=== PATIENT | male | born 1940 | race Caucasian/White ===

== ENCOUNTER → 2023-06-06 11:32 | Outpatient (REF) | payer MEDICARE, SELFPAY | LOC: HWRAD 11:32 | PROVIDERS: ATTENDING PHYSICIAN Internal Medicine; FAMILY PHYSICIAN Physician Assistant | DX: J44.9 Chronic obstructive pulmonary disease, unspecified (principal) | CPT/HCPCS: 71046 ==

== ENCOUNTER → 2023-06-13 17:57 | Outpatient (REF) | payer MEDICARE, SELFPAY | LOC: PAVMRI 17:57 | PROVIDERS: ATTENDING PHYSICIAN Physician Assistant; FAMILY PHYSICIAN Physician Assistant | DX: M48.061 Spinal stenosis, lumbar region without neurogenic claudication (principal); M54.16 Radiculopathy, lumbar region | CPT/HCPCS: 72148 ==

== ENCOUNTER → 2023-10-27 08:33 | Outpatient (REF) | payer MEDICARE, SELFPAY | LOC: MRI 3T 08:33 | PROVIDERS: ATTENDING PHYSICIAN Physician Assistant; FAMILY PHYSICIAN Physician Assistant | DX: M25.561 Pain in right knee (principal) | CPT/HCPCS: 73721 ==

== ENCOUNTER 2024-05-26 05:50 | Emergency (ER) | payer MEDICARE, SELFPAY ==
[2024-05-26 05:52] VITALS: BP 178/94
[2024-05-26 06:16] VITALS: BMI 25.4
--- NOTE | 2024-05-26 07:45 | ED.GENMED ---
History of Present Illness
General
Chief Complaint: Back Pain
Time Seen by Provider: 05/26/24 06:08
History of Present Illness
History of Present Illness:
83-year-old male with history of hypertension, hyperlipidemia, and peripheral arterial disease status post left iliac stent presents the emergency department for evaluation of generalized lower back pain. Has chronic low back pain for which she
sees orthopedics as an outpatient, NSAID's, diagnosis of spinal stenosis. He reportedly underwent a steroid injection 1 week ago at Ortho but he is not certain whether this was an IM steroid injection versus an epidural injection. States that this
has not helped and he has worsening pain. No lower extremity radiculopathy or paresthesias at rest but does have symptoms of neurogenic claudication. No loss of bladder or bowel function. No fevers, chills, or night sweats. Taking oxycodone
without relief
Past History
Past History
ED Past Medical History: Asthma (as child but outgrew), CAD, HTN and Hypercholesterolemia; Negative NIDDM
ED Past Surgical History: Cardiac (bypass, aortic valve replacement 2019) and Other (Stent in the right leg)
Social History
Tobacco: Former smoker
Alcohol: Occasional
Personal:
Living: with family
Review of Systems
Review of Systems
Allergies reviewed?: Yes
All Other Systems: ROS reviewed and negative except as documented in HPI and ROS
Phy Exam
Physical Exam
Physical Exam:
GEN: Well appearing, NAD, WDWN
HEENT: Oral mucosa moist, no scleral icterus
Cardiac: Regular rate
Lung: No respiratory distress, no tachypnea
MSK: No gross deformity or injuries. No reproducible tenderness to the midline lumbar spine or paraspinous musculature
Skin: Good color, no pallor or jaundice, no rashes
Neuro: AO x3, moves all extremities freely. Bilateral lower extremity strength is 5 out of 5 in all more and symmetric, bilateral lower extremity sensation is intact in all more and symmetric, patellar reflexes 2+ bilaterally
Psych: Calm, cooperative
Course
Orders/Labs/Results
Orders:
Orders
05/26/24 08:21
Oxycodone/Acetaminophen [Percocet 5/325] 1 tablet PO NOW STA
05/26/24 09:04
Bladder Scan- Treatment ONCE
05/26/24 09:12
CRP [C-Reactive Protein] Urgent
Complete Blood Count/With Diff Urgent
Comprehensive Metabolic Panel Urgent
ESR [Erythrocyte Sed Rate] Urgent
05/26/24 09:14
Urinalysis Reflex To Culture Urgent
Date Specimen was Collected: 05/26/24
Time Specimen was Collected: 09:12
Urine Microscopic Reflex Cult Urgent
Urine Culture Urgent
JANAY Source: U
Specimen Description:
Date Specimen was Collected: 05/26/24
Time Specimen was Collected: 09:12
Abnormal Lab Results
05/26/24 05/26/24
09:12 09:14
RBC 4.55 L 10^6/uL
(4.70-6.10)
MCV 96.7 H fL
(80.0-94.0)
MCH 31.6 H pg
(27.0-31.0)
MCHC 32.7 L g/dL
(33.0-37.0)
MPV 11.6 H fL
(7.4-10.4)
Absolute Lymphs (auto) 0.9 L 10^3/uL
(1.2-3.4)
Absolute Monos (auto) 0.7 H 10^3/uL
(0.1-0.6)
Neutrophils % 79.4 H %
(42.2-75.2)
Lymphocytes % 10.5 L %
(20.5-51.1)
Total Bilirubin 1.8 H mg/dl
(0.2-1.3)
Alkaline Phosphatase 145 H U/L
(38-126)
C-Reactive Protein 25.60 H mg/L
(0.0-10.00)
Ur Occult Blood Reflex 2+ A
(Negative)
Leukocyte Esterase Rfl 1+ A
(Negative)
Urine RBC 7-10 A /HPF
(0-2)
Urine WBC (Reflex) 40-50 A /HPF
(0-5)
Urine Albumin (Reflex) 3+ A
(Neg - Trace)
05/26/24 09:12
05/26/24 09:12
Vital Signs
Initial and Last Documented VS:
Initial Vital Signs
Temp Pulse Resp BP Pulse Ox
97.9 F 88 24 178/94 93
05/26/24 05:52 05/26/24 05:52 05/26/24 05:52 05/26/24 05:52 05/26/24 05:52
Last Documented Vital Signs
Temp Pulse Resp BP Pulse Ox
97.9 F 72 18 161/90 93
05/26/24 05:52 05/26/24 08:53 05/26/24 08:53 05/26/24 08:53 05/26/24 05:52
MDM/Problems Addressed
MDM/Problems Addressed:
I was able to determine through chart review the patient received a lumbar epidural steroid injection 8 days ago at his orthopedic office. Given this finding labs were obtained to evaluate white count and inflammatory markers however these were
reassuring, CRP below 50 is reassuring against epidural spinal abscess. His pain did improve with Percocet. Discussed pain control measures and recommend outpatient Ortho follow-up
*Critical Care Note
Total Time (30-74mins, 75-104mins- exclusive of procedures): Not Applicable
ED Attending Note
-
Portions of this chart may have been created with voice recognition software.� Occasional wrong word or��sound alike� substitutions may have occurred due to the inherent limitations of voice recognition software.
Discharge Plan
Departure
Patient Disposition: Home (Routine Discharge)
Date of Disposition: 05/26/24
Time of Disposition: 12:00
Patient with high blood pressure during this ER visit?: No
Discharge Problem:
Spinal stenosis
Instructions: Low Back Pain (DC)
Prescriptions:
New
oxycodone-acetaminophen [Percocet] 5-325 mg tablet
1 tab PO Q6HPRN PRN (Reason: pain) Qty: 10 0RF
methocarbamol 500 mg tablet
500 - 1,000 mg PO HS Qty: 10 0RF
No Action
metoprolol succinate [Toprol XL] 50 mg tablet extended release 24 hr
50 mg PO BID Qty: 180 3RF
Rx Instructions:
Please note decreased dose
hydrocodone-acetaminophen 5-325 mg Tablet
1 tab PO Q4HPRN PRN (Reason: SEVERE back pain)
furosemide 40 MG tablet
40 mg PO DAILYPRN PRN (Reason: takes it on the weekends)
Referrals:
UNKNOWN - PT DOES,NOT KNOW [Family Provider] -
Activity Restrictions/Additional Instructions:
Do not combine the pain medicine and muscle relaxant. Follow-up with your medicare contact specialist as soon as possible
Interventions
Interventions:
*Risk Screen - Suicide Last Done: 05/26/24 05:52
*General Assessment Last Done: 05/26/24 06:15
*Neglect/Abuse Screening Last Done: 05/26/24 06:40
*ED- Fall Risk Assessment Last Done: 05/26/24 06:14
*ED COVID-19 Vaccine History Last Done: 05/26/24 06:14
*Nursing Disposition Last Done: 05/26/24 12:16
ED-Musculoskeletal Assessment Last Done: 05/26/24 06:23
Discharge Date and Time
Discharge Date/Time: 05/26/24 12:16
Print Language: ARABIC
[2024-05-26] MEDS: PERCOCET 5/325 1 TABLET PO (08:42)
[2024-05-26 08:53] VITALS: BP 161/90
[2024-05-26 09:44] LABS: % Basophils 0.5 % (0-2); % Eosinophils 1.1 % (0-6); % Immature Granulocytes 0.1 % (0-0.5); % Lymphocytes 10.5 % (20.5-51.1); % Monocytes 8.4 % (1.7-9.3); % Neutrophils 79.4 % (42.2-75.2); Absolute Eosinophils 0.1 10^3/uL (0-0.7); Absolute Lymphocytes 0.9 10^3/uL (1.2-3.4); Absolute Monocytes 0.7 10^3/uL (0.1-0.6); Absolute Neutrophils 6.4 10^3/uL (1.4-6.5); Hemoglobin 14.4 g/dL (13.0-18.0); Mean Corp Hgb Conc. 32.7 g/dL (33.0-37.0); Mean Corpuscular Hgb 31.6 pg (27.0-31.0); Mean Corpuscular Volume 96.7 fL (80.0-94.0); Mean Platelet Volume 11.6 fL (7.4-10.4); Nucleated Red Blood Cells % 0 % (-); Platelet Count 160 10^3/uL (130-400); Red Blood Cell Count 4.55 10^6/uL (4.70-6.10); Red Cell Dist. Width 13.7 % (11.5-14.5); White Blood Cell Count 8.1 10^3/uL (4.8-10.8)
[2024-05-26 09:49] LABS: ALT (SGPT) 25 U/L (0-50); AST (SGOT) 25 U/L (17-59); Albumin 4.2 g/dl (3.5-5.0); Alkaline Phosphatase 145 U/L (38-126); Blood Urea Nitrogen 19 mg/dl (9-20); Calcium 9.9 mg/dl (8.4-10.2); Carbon Dioxide 30 mmol/L (22-30); Chloride 103 mmol/L (98-107); Estimated Creatinine Clearance 55 ml/min; Glucose 86 mg/dl (70-99); Potassium 4.7 mmol/L (3.5-5.1); Sodium 140 mmol/L (135-145); Total Bilirubin 1.8 mg/dl (0.2-1.3); Total Protein 7.4 g/dl (6.3-8.2); eGFR > 60.00
[2024-05-26 09:54] LABS: Urine Albumin 3+ (Neg - Trace); Urine Bilirubin Negative (Negative); Urine Character Clear (Clear); Urine Color Yellow; Urine Glucose Negative (Negative); Urine Ketone Negative (Negative); Urine Leukocyte 1+ (Negative); Urine Nitrite Negative (Negative); Urine Occult Blood 2+ (Negative); Urine Specific Gravity 1.015 (<1.030); Urine Urobilinogen Negative (Neg - 1+); Urine pH 6.5 (5.0-9.0)
[2024-05-26 10:44] LABS: Erythrocyte Sed Rate 10 mm/hour (0-20)
[2024-05-26 11:36] LABS: Urine Mucus Few
[2024-05-26 11:38] LABS: Urine Amorphous Seen; Urine Urothelial Cell 0-2 /LPF (FEW)
[2024-05-26 11:51] LABS: Urine White Cell 40-50 /HPF (0-5)
[2024-05-26 11:52] LABS: Urine Hyaline Cast 0-2 /LPF (0-2)
== END 2024-05-26 12:16 | disposition home or self-care (01) ==
LOC: EMR 05:50
PROVIDERS: Physician Assistant; EMERGENCY PHYSICIAN Emergency Medicine
DX: M48.00 Spinal stenosis, site unspecified (principal); I10 Essential (primary) hypertension; E78.00 Pure hypercholesterolemia, unspecified; I73.9 Peripheral vascular disease, unspecified; Z87.891 Personal history of nicotine dependence
CPT/HCPCS: 99283; 80053; 81003; 81015; 85025; 85652; 86140; 87077; 87086

== ENCOUNTER → 2024-06-18 08:34 | Outpatient (REF) | payer MEDICARE, SELFPAY | LOC: PAVMRI 08:34 | PROVIDERS: ATTENDING PHYSICIAN Physical Medicine & Rehabilitation; FAMILY PHYSICIAN Internal Medicine | DX: M54.16 Radiculopathy, lumbar region (principal) | CPT/HCPCS: 72148 ==

== ENCOUNTER → 2024-07-16 10:35 | Outpatient (REF) | payer MEDICARE, SELFPAY | LOC: HWRAD 10:35 | PROVIDERS: ATTENDING PHYSICIAN Anesthesiology Pain Medicine; FAMILY PHYSICIAN Internal Medicine | DX: M81.0 Age-related osteoporosis without current pathological fracture (principal) | CPT/HCPCS: 77080 ==

== ENCOUNTER → 2024-07-21 11:35 | Outpatient (REF) | payer MEDICARE, SELFPAY | LOC: RADI 11:35 | PROVIDERS: ATTENDING PHYSICIAN Anesthesiology Pain Medicine; FAMILY PHYSICIAN Internal Medicine | DX: M48.56XA Collapsed vertebra, not elsewhere classified, lumbar region, initial encounter for fracture (principal); M54.50 Low back pain, unspecified ==

== ENCOUNTER 2024-11-03 12:30 | Emergency (ER) | payer MEDICARE, SELFPAY ==
[2024-11-03 12:40] VITALS: BP 137/73
[2024-11-03 16:00] VITALS: BP 129/85
[2024-11-03 17:31] LABS: Hematocrit 48.0 % (39.0-52.0); Hemoglobin 15.5 g/dL (13.0-18.0); Mean Corp Hgb Conc. 32.3 g/dL (33.0-37.0); Mean Corpuscular Volume 97.4 fL (80.0-94.0); Nucleated Red Blood Cells % 0 % (-); Red Cell Dist. Width 14.5 % (11.5-14.5)
--- NOTE | 2024-11-03 18:13 | ED.GENMED ---
History of Present Illness
General
Chief Complaint: Fall
Source: patient and spouse
Exam Limitations: none
Time Seen by Provider: 11/03/24 16:05
Nursing documentation reviewed up to this point in time: agreed with
History of Present Illness
History of Present Illness:
Patient is an 83-year-old male presents to the emergency department after mechanical fall earlier today. He states that he was on the deck when he tripped over a cord falling on his left side. This fall was unwitnessed however he denies any loss
of consciousness. Patient reports noticing bleeding from his left eyebrow region as well as a large tear of the skin on his right forearm.
Patient denies any preceding chest pain, shortness of breath, lightheadedness or dizziness. He denies any current headache, neck pain, vomiting, visual changes, back pain, numbness/tingling in extremities, saddle paresthesias, or weakness. He
denies any pain in his lower extremities.
Patient does note that he has had worsening swelling of bilateral lower legs over the past 2 weeks. He did schedule a follow-up with his algebra tutor, Dr. De in the coming weeks. He does have a prescription for Lasix although is not
compliant. He has known COPD.
He is unsure of his last tetanus shot.
Past History
Past History
ED Past Medical History: Asthma (as child but outgrew), CAD, HTN and Hypercholesterolemia; Negative NIDDM
ED Past Surgical History: Cardiac (bypass, aortic valve replacement 2019) and Other (Stent in the right leg)
Social History
Tobacco: Former smoker
Alcohol: Occasional
Personal:
Living: with family
Review of Systems
Review of Systems
Allergies reviewed?: Yes
All Other Systems: ROS reviewed and negative except as documented in HPI and ROS
Phy Exam
Physical Exam
Physical Exam:
GENERAL: No acute distress
HEENT: Approximately 1.5 cm laceration of left brow with surrounding contusion, extraocular muscles intact, no signs of entrapment, dentition intact, no other obvious trauma
NECK: no midline tenderness, normal range of motion, no other obvious trauma
BACK: no midline tenderness, no other obvious trauma
CHEST: no tenderness, no flail segment, no subcutaneous emphysema, no reproducible tenderness of chest wall
LUNGS: clear to auscultation bilaterally
CARDIOVASCULAR: regular rate and rhythm
ABDOMEN: soft, non-tender, no masses, no other obvious trauma
PELVIS: stable, no obvious injury
EXTREMITIES: Large skin tear to right forearm with additional skin tears to right dorsal hand, left elbow. No bony tenderness of bilateral upper or lower extremities with full range of motion. 1+ pitting edema bilateral lower extremities.
Strength 5/5 in upper/lower extremities. Distal pulses intact with normal sensation and capillary
NEUROLOGIC: awake, alert x 3, no focal deficits, steady gait and fluid speech
Course
Orders/Labs/Results
Orders:
Orders
11/03/24 16:33
CT Cervical Spine W/o Iv Contr Urgent
Comment:
Reason For Exam: fall
CT Head W/o Iv Contrast Urgent
Comment:
Reason For Exam: fall
11/03/24 16:44
CR Chest - 2 Views Urgent
Comment:
Reason For Exam: fall
CR Ribs-left 2 Vw No Pa Chest Urgent
Comment:
Reason For Exam: fall
11/03/24 17:03
Complete Blood Count/With Diff Urgent
11/03/24 18:53
Tetanus/Diphth/Acelpertussis [Adacel] 0.5 ml IM .ONCE ONE
Abnormal Lab Results
11/03/24
17:03
WBC 11.6 H 10^3/uL
(4.8-10.8)
MCV 97.4 H fL
(80.0-94.0)
MCH 31.4 H pg
(27.0-31.0)
MCHC 32.3 L g/dL
(33.0-37.0)
Abs Immat Gran (auto) 0.1 H 10^3/uL
(0-0.05)
Absolute Neuts (auto) 9.1 H 10^3/uL
(1.4-6.5)
Absolute Monos (auto) 1.1 H 10^3/uL
(0.1-0.6)
Neutrophils % 78.3 H %
(42.2-75.2)
Lymphocytes % 10.2 L %
(20.5-51.1)
Monocytes % 9.5 H %
(1.7-9.3)
11/03/24 17:03
11/03/24 18:26
Vital Signs
Initial and Last Documented VS:
Initial Vital Signs
Temp Pulse Resp BP Pulse Ox
98.7 F 106 18 137/73 97
11/03/24 12:40 11/03/24 12:40 11/03/24 12:40 11/03/24 12:40 11/03/24 12:40
Last Documented Vital Signs
Temp Pulse Resp BP Pulse Ox
98.7 F 79 20 129/85 97
11/03/24 12:40 11/03/24 16:00 11/03/24 16:00 11/03/24 16:00 11/03/24 18:13
Procedures
Laceration Closure
Left Eye brow:
Status of Wound: clean
Size of Wound in cm: 1.5
Description of Wound Edges: surrounded by abrasion
Preparation: cleaned with saline
Anesthesia: 1% Lidocaine with epi
Revision/Debridement: routine- no revision
Wound exploration: explored to base- no FB
Type of Closure: single layer closure
Skin Closure Material: 5-0 nylon
Number of sutures: 4
MDM/Problems Addressed
Differential Diagnosis Includes:
Not limited to: Contusion, concussion, intracerebral hemorrhage, skin tear, laceration, dependent edema, CHF, etc.
MDM/Problems Addressed:
83-year-old male presenting after mechanical fall at home sustaining laceration to left brow as well as large skin tear to right forearm, along with other scattered skin tears to upper extremities. No report of loss of consciousness. Vital signs and
physical exam as above.
Patient arrives A&O x3 without any focal neurologic exam. No cervical spinal or midline spinal tenderness. He is ambulating without difficulty without any evidence of bony tenderness or deformity to upper or lower extremities. He does have large
skin of right forearm as well as other skin tears to right hand, left elbow as above. There is a laceration to left brow with surrounding contusion and abrasion.
Ultimately � fall seems to be mechanical in nature. Do not suspect syncope. Will check CT imaging head, cervical spine as well as rib series x-ray of left side. Laceration will require primary closure. Will attempt to better approximate skin tear on
right forearm. Will update tetanus.
Update: Imaging without evidence of acute traumatic injuries. Verbal consent obtained by patient. Laceration of left brow anesthetized with local anesthesia and 4, 5-0 nylon simple interrupted sutures with good skin approximation, and hemeostasis
obtained. I did approximate wound edges of skin tear on right forearm as best as possible using steristrips. Non-stick dressing applied by RN. Tdap updated.
Patient tolerated procedures well and ultimately feel stable for discharge home. Discussed wound care instructions and uture removal in 5 to 7 days. Advised close follow up with cardiology/primary care given complaint of gradually worsening swelling
in lower extremities, although not acute today. Advised to take diuretic as prescribed � he has follow up with cardiology soon.
Referral information given for wound care given large skin tear. Advised to monitor closely for signs of infection and discussed strict return precautions.
Chronic conditions affecting care:
Hypertension
Acute Exacerbation and/or Progression of Chronic Illness:
Acutely hypertensive
*Radiology
Radiology exam reviewed: radiology read reviewed
*Pulse Oximetry
SaO2: 97
Oxygen Mode of Delivery: Room air
Patient hypoxic: no
*EKG
Interpreted by ED Provider?: NA
*Correspondence Dictator Interpretation
Rate: Correspondence Dictator- N/A
*Critical Care Note
Total Time (30-74mins, 75-104mins- exclusive of procedures): Not Applicable
ED Attending Note
-
Portions of this chart may have been created with voice recognition software.� Occasional wrong word or��sound alike� substitutions may have occurred due to the inherent limitations of voice recognition software.
Discharge Plan
Departure
Patient Disposition: Home (Routine Discharge)
Date of Disposition: 11/03/24
Time of Disposition: 18:54
Patient with high blood pressure during this ER visit?: Yes
Condition: Good
Discharge Problem:
Fall, Head injury, Laceration of eyebrow, left, Multiple skin tears
Instructions: Wound Care (DC), Head Injury in Adults (DC), Laceration Repair With Stitches (MS), [facility]-Wounds, BLOOD PRESSURE
Prescriptions:
No Action
metoprolol succinate [Toprol XL] 50 mg tablet extended release 24 hr
50 mg PO BID Qty: 180 3RF
Rx Instructions:
Please note decreased dose
hydrocodone-acetaminophen 5-325 mg Tablet
1 tab PO Q4HPRN PRN (Reason: SEVERE back pain)
furosemide 40 MG tablet
40 mg PO DAILYPRN PRN (Reason: takes it on the weekends)
oxycodone-acetaminophen [Percocet] 5-325 mg tablet
1 tab PO Q6HPRN PRN (Reason: pain) Qty: 10 0RF
methocarbamol 500 mg tablet
500 - 1,000 mg PO HS Qty: 10 0RF
Referrals:
Peng Porter MD [Family Provider, Internal Medicine] - Follow up in 5-7 days
Héctor Osorio MD [Active, Cardiology] - Next open appointment
Activity Restrictions/Additional Instructions:
RETURN TO THE EMERGENCY DEPARTMENT WITH ANY SEVERE HEADACHE OR NECK PAIN, CHANGES IN MENTAL STATUS, PERSISTENT DIZZINESS, VOMITING, CHEST PAIN/SHORTNESS OF BREATH, WORSENING SWELLING OF LOWER EXTREMITIES, OR ANY SIGNS OF INFECTION FROM WOUNDS
- As discussed�your imaging showed no acute abnormalities. It is very important that you follow-up with your algebra tutor soon further evaluation/management outpatient. Please ensure that you have lab work obtained by your primary care
algebra tutor in the next coming days.
- It is important you take your furosemide as directed. Continue to elevate your legs
- The laceration on your left brow was closed with 4 sutures. These will need to be removed in 5 to 7 days. Keep skin tear clean and dry. Continue to wrap with nonstick bandage and gauze until it begins to heal. Keep wound clean and dry. Apply
antibiotic ointment to skin tear. Monitor very closely for signs of infection of any wounds including fever, significant redness or swelling around wound, pus draining from wound, etc. I have provided the information for a follow-up with the wound
care center to ensure the skin tears heal.
- Follow-up with your primary care and cardiology for further evaluation/management
Monitor your symptoms closely and return to the emergency department with any acute worsening/new symptoms or any other concerns
Interventions
Interventions:
*Risk Screen - Suicide Last Done: 11/03/24 12:40
*General Assessment Last Done: 11/03/24 15:30
*Neglect/Abuse Screening Last Done: 11/03/24 15:30
*ED COVID-19 Vaccine History Last Done: 11/03/24 15:30
*Nursing Disposition Last Done: 11/03/24 19:34
ED-Musculoskeletal Assessment Last Done: 11/03/24 15:30
ED- Neurological Assessment Last Done: 11/03/24 15:30
ED-Skin Assessment Last Done: 11/03/24 15:30
Discharge Date and Time
Discharge Date/Time: 11/03/24 19:35
Print Language: ITALIAN
[2024-11-03] MEDS: ADACEL 0.5 ML IM (19:06)
== END 2024-11-03 19:35 | disposition home or self-care (01) ==
LOC: EMR 12:30
PROVIDERS: Physician Assistant; EMERGENCY PHYSICIAN Emergency Medicine; FAMILY PHYSICIAN Internal Medicine
DX: S51.811A Laceration without foreign body of right forearm, initial encounter (principal); S01.112A Laceration without foreign body of left eyelid and periocular area, initial encounter; S61.411A Laceration without foreign body of right hand, initial encounter; W01.10XA Fall on same level from slipping, tripping and stumbling with subsequent striking against unspecified object, initial encounter; Y92.009 Unspecified place in unspecified non-institutional (private) residence as the place of occurrence of the external cause; Z23 Encounter for immunization; I25.10 Atherosclerotic heart disease of native coronary artery without angina pectoris; I10 Essential (primary) hypertension; E78.00 Pure hypercholesterolemia, unspecified; J44.89 Other specified chronic obstructive pulmonary disease; Z87.891 Personal history of nicotine dependence; Z95.2 Presence of prosthetic heart valve; Z95.5 Presence of coronary angioplasty implant and graft
CPT/HCPCS: 99284; 12011; 90471; 70450; 71046; 71100; 72125; 85025; 90715

== ENCOUNTER 2024-11-13 06:42 | Day surgery (SDC) | payer MEDICARE, SELFPAY ==
[2024-11-13 11:03] LABS: Blood Urea Nitrogen 33 mg/dl (9-20); Calcium 9.1 mg/dl (8.4-10.2); Carbon Dioxide 25 mmol/L (22-30); Chloride 105 mmol/L (98-107); Glucose 97 mg/dl (70-99); Potassium 4.7 mmol/L (3.5-5.1); Sodium 137 mmol/L (135-145); eGFR > 60.00
--- NOTE | 2024-11-13 11:55 | ITS.CL.CARDI ---
[facility] - Cardioversion
Cardioversion
Procedure Report:
Date of Procedure:
Procedure: Cardioversion
Indication: Symptomatic atrial fibrillation
Performing Physician: aCprice Trejo MD
Technique: The patient was brought to the holding area. Signed informed consent was obtained. A time out was called and performed. The patient was anesthetized by the anesthesia service. Anticoagulation status was reviewed and appropriate. R2 pads
were placed anteriorly and posteriorly. A (200) J synchronized biphasic shock followed by 300 J synchronized biphasic shock that restored normal sinus rhythm without significant bradycardia. There were no complications.
Conclusion: Uncomplicated cardioversion from atrial fibrillation to sinus rhythm.
Recommendation: Routine post cardioversion care. Continue snf anticoagulation.
--- NOTE | 2024-11-13 13:55 | W.PN.UPDATE ---
Update Note
Progress Note Update
Patient underwent CT chest abdomen and pelvis for evaluation of a large thrombus detected on a CARRILLO, case was discussed with vascular surgery Dr. Garner. 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
plaque seen eccentrically. Recommendation to continue with anticoagulation and to follow up with vascular surgery. No indications for covered sent for now.
== END 2024-11-13 13:40 | disposition home or self-care (01) ==
LOC: CATH 06:42
PROVIDERS: Nurse Practitioner Adult Health; ATTENDING PHYSICIAN Nuclear Medicine Nuclear Cardiology; FAMILY PHYSICIAN Physician Assistant; OTHER PHYSICIAN Internal Medicine Cardiovascular Disease
DX: I48.91 Unspecified atrial fibrillation (principal); Z79.01 Long term (current) use of anticoagulants; I70.0 Atherosclerosis of aorta; I49.8 Other specified cardiac arrhythmias; J90 Pleural effusion, not elsewhere classified; M48.56XA Collapsed vertebra, not elsewhere classified, lumbar region, initial encounter for fracture; R18.8 Other ascites; I74.11 Embolism and thrombosis of thoracic aorta; R91.1 Solitary pulmonary nodule
CPT/HCPCS: 93312; 93320; 93325; 71275; 74174; 80048; 92960; 93005; Q9967

== ENCOUNTER → 2024-11-18 09:28 | Outpatient (REF) | payer MEDICARE, SELFPAY | LOC: WOUND 09:28 | PROVIDERS: ATTENDING PHYSICIAN Surgery; FAMILY PHYSICIAN Internal Medicine | DX: S51.801A Unspecified open wound of right forearm, initial encounter (principal); S51.802A Unspecified open wound of left forearm, initial encounter; S01.81XA Laceration without foreign body of other part of head, initial encounter; I25.10 Atherosclerotic heart disease of native coronary artery without angina pectoris; I73.9 Peripheral vascular disease, unspecified; I77.9 Disorder of arteries and arterioles, unspecified; I42.9 Cardiomyopathy, unspecified; Z79.01 Long term (current) use of anticoagulants; W19.XXXA Unspecified fall, initial encounter | CPT/HCPCS: 11042; 99203 ==

== ENCOUNTER → 2024-11-25 09:16 | Outpatient (REF) | payer MEDICARE, SELFPAY | LOC: WOUND 09:16 | PROVIDERS: ATTENDING PHYSICIAN Surgery | DX: S51.801A Unspecified open wound of right forearm, initial encounter (principal); S51.802A Unspecified open wound of left forearm, initial encounter; S01.81XA Laceration without foreign body of other part of head, initial encounter; I25.10 Atherosclerotic heart disease of native coronary artery without angina pectoris; I73.9 Peripheral vascular disease, unspecified; I77.9 Disorder of arteries and arterioles, unspecified; I42.9 Cardiomyopathy, unspecified; X58.XXXA Exposure to other specified factors, initial encounter | CPT/HCPCS: 99212 ==

== ENCOUNTER 2024-12-02 11:08 | Inpatient (IN) | payer MEDICARE, SELFPAY ==
[2024-12-02] VITALS (15 sets, daily range): BP systolic 102–150; BP diastolic 70–109; BMI 24.9
--- NOTE | 2024-12-02 08:20 | ED.GENMED ---
History of Present Illness
<BEBETO Gutierrez Last Filed: 12/02/24 09:44>
General
Chief Complaint: Breathing Problem
Source: patient and significant other
Exam Limitations: none
Time Seen by Provider: 12/02/24 08:09
Nursing documentation reviewed up to this point in time: agreed with
History of Present Illness
History of Present Illness:
see MDM
Past History
<BEBETO Gutierrez Last Filed: 12/02/24 09:44>
Past History
ED Past Medical History: Asthma (as child but outgrew), CAD, HTN and Hypercholesterolemia; Negative NIDDM
ED Past Surgical History: Cardiac (bypass, aortic valve replacement 2019) and Other (Stent in the right leg)
Social History
Tobacco: Former smoker
Alcohol: Occasional
Personal:
Living: with family
Phy Exam
<BEBETO Gutierrez Last Filed: 12/02/24 09:44>
Physical Exam
Physical Exam:
GENERAL: Alert , in no apparent distress
EYE: pupils equal and reactive
NECK: Supple
ENT: o/p clr, mmm.
CARDIAC: Irregularly irregular, tachycardia
Moderate 3+ pitting edema symmetric lower extremities
LUNGS: No respiratory distress, crackles at both bases and mid posterior lung more
ABDOMEN: Soft, without focal tenderness, no r/g, no cvat, normal bowel sounds
NEUROLOGICAL: Alert and oriented, no focal neuro deficits
SKIN: Warm and dry, skin intact.
MUSCULOSKELETAL: Significant edema, well perfused. neg jacob's sign
PSYCH: Normal and appropriate interaction.
Scores
<BEBETO Gutierrez Last Filed: 12/02/24 09:44>
Heart Failure Risk
Heart Failure Risk Score: Yes
History of Stroke or TIA: No
History of intubation for respiratory distress: No
Heart rate on ED arrival >/= 110: No
SaO2 <90% on arrival on room air: No
HR >/=110 during 3min walk test (or too ill to perform test): Yes
ECG has acute ischemic changes: No
Urea >/=12mmol/L (BUN 33.6mg/dL): Yes
Serum CO2>/=35mmol/L: No
Troponin I or T elevated to [place] Level (0.4mg/dL): No
NT-proBNP >/=5,000ng/L (5,000pg/ml): Yes
HF Risk Score: 4
Admission Status: HIGH RISK 26.1% Consider SNF treatment or admission to hospital
Course
<Rae Nevarez PA-C - Last Filed: 12/02/24 09:44>
Orders/Labs/Results
Orders:
Orders
12/02/24 07:29
EKG [Electrocardiogram (*1)] Stat
Reason for Study: Shortness of Breath
EKG- Treatment ONCE
12/02/24 08:21
Cardiac Monitoring- Treatment ONCE
CR Chest - 2 Views Urgent
Comment:
Reason For Exam: sob, afib
12/02/24 08:34
Complete Blood Count/With Diff Urgent
Comprehensive Metabolic Panel Urgent
Magnesium Urgent
NT-proBNP Urgent
12/02/24 09:36
Furosemide [Lasix] 40 mg IV NOW STA
12/02/24 09:45
Diltiazem 125 mg/125 ml Nss [Cardizem] 125 mg in 125 ml IV PER PROTOCOL
Initial dose in mg/hr, then titrate:: 5
Titrate to keep:: Heart rate 80-100 bpm
Titrate by mg/hr:: 5 mg/hr
Frequency of titrations (minutes):: 15
Maximum dose in mg/hr:: 15
Abnormal Lab Results
12/02/24
08:34
MCV 99.8 H fL
(80.0-94.0)
MCH 31.9 H pg
(27.0-31.0)
MCHC 32.0 L g/dL
(33.0-37.0)
RDW 16.0 H %
(11.5-14.5)
MPV 11.9 H fL
(7.4-10.4)
Abs Immat Gran (auto) 0.1 H 10^3/uL
(0-0.05)
Absolute Lymphs (auto) 1.0 L 10^3/uL
(1.2-3.4)
Absolute Monos (auto) 0.9 H 10^3/uL
(0.1-0.6)
Immature Gran % 0.6 H %
(0-0.5)
Neutrophils % 75.9 H %
(42.2-75.2)
Lymphocytes % 11.5 L %
(20.5-51.1)
Monocytes % 10.3 H %
(1.7-9.3)
BUN 36 H mg/dl
(9-20)
Glucose 103 H mg/dl
(70-99)
Total Bilirubin 1.9 H mg/dl
(0.2-1.3)
Alkaline Phosphatase 136 H U/L
(38-126)
12/02/24 08:34
12/02/24 08:34
Vital Signs
Initial and Last Documented VS:
Initial Vital Signs
Pulse Resp BP Pulse Ox
124 20 137/96 97
12/02/24 07:35 12/02/24 07:35 12/02/24 07:35 12/02/24 07:35
Last Documented Vital Signs
Temp Pulse Resp BP Pulse Ox
36.2 C 108 30 137/96 97
12/02/24 08:37 12/02/24 08:00 12/02/24 08:00 12/02/24 07:35 12/02/24 08:53
<Saleem Johnson, DO - Last Filed: 12/02/24 09:20>
Orders/Labs/Results
Orders:
Orders
12/02/24 07:29
EKG [Electrocardiogram (*1)] Stat
Reason for Study: Shortness of Breath
EKG- Treatment ONCE
12/02/24 08:21
Cardiac Monitoring- Treatment ONCE
CR Chest - 2 Views Urgent
Comment:
Reason For Exam: sob, afib
12/02/24 08:34
Complete Blood Count/With Diff Urgent
Comprehensive Metabolic Panel Urgent
Magnesium Urgent
NT-proBNP Urgent
12/02/24 09:36
Furosemide [Lasix] 40 mg IV NOW STA
12/02/24 09:45
Diltiazem 125 mg/125 ml Nss [Cardizem] 125 mg in 125 ml IV PER PROTOCOL
Initial dose in mg/hr, then titrate:: 5
Titrate to keep:: Heart rate 80-100 bpm
Titrate by mg/hr:: 5 mg/hr
Frequency of titrations (minutes):: 15
Maximum dose in mg/hr:: 15
Abnormal Lab Results
12/02/24
08:34
MCV 99.8 H fL
(80.0-94.0)
MCH 31.9 H pg
(27.0-31.0)
MCHC 32.0 L g/dL
(33.0-37.0)
RDW 16.0 H %
(11.5-14.5)
MPV 11.9 H fL
(7.4-10.4)
Abs Immat Gran (auto) 0.1 H 10^3/uL
(0-0.05)
Absolute Lymphs (auto) 1.0 L 10^3/uL
(1.2-3.4)
Absolute Monos (auto) 0.9 H 10^3/uL
(0.1-0.6)
Immature Gran % 0.6 H %
(0-0.5)
Neutrophils % 75.9 H %
(42.2-75.2)
Lymphocytes % 11.5 L %
(20.5-51.1)
Monocytes % 10.3 H %
(1.7-9.3)
BUN 36 H mg/dl
(9-20)
Glucose 103 H mg/dl
(70-99)
Total Bilirubin 1.9 H mg/dl
(0.2-1.3)
Alkaline Phosphatase 136 H U/L
(38-126)
12/02/24 08:34
12/02/24 08:34
Vital Signs
Initial and Last Documented VS:
Initial Vital Signs
Pulse Resp BP Pulse Ox
124 20 137/96 97
12/02/24 07:35 12/02/24 07:35 12/02/24 07:35 12/02/24 07:35
Last Documented Vital Signs
Temp Pulse Resp BP Pulse Ox
36.2 C 108 30 137/96 97
12/02/24 08:37 12/02/24 08:00 12/02/24 08:00 12/02/24 07:35 12/02/24 08:53
<Rae Nevarez PA-C - Last Filed: 12/02/24 09:44>
MDM/Problems Addressed
Differential Diagnosis Includes:
see MDM
MDM/Problems Addressed:
Note:
CHIEF COMPLAINT(S)
Shortness of breath and leg swelling.
HISTORY OF PRESENT ILLNESS
The patient is an 83-year-old male with a known history of atrial fibrillation on eliquis, CABG, CHF on lasix, mural thoracic aortic thrombus here for DYSPNEA and leg swelling.
He is currently taking Apixaban and reports adherence to this medication regimen. Approximately two weeks ago, the patient underwent an outpatient cardioversion which, to his knowledge and per his press leader, initially suggested success but he
now believes he remains in atrial fibrillation. The patients chief complaints include worsening shortness of breath and swelling in the legs, which have persisted for approximately two months. He reports difficulty with exertion, finding it tough to
go up a flight of steps or walk long distances. Recently, upon consulting with his press leader, the dose of furosemide was doubled to manage edema, and then returned to the original dosage after three days. Despite this adjustment, the patient did
not experience an improvement in symptoms. He denies experiencing any chest pain. There is also a notable change in his voice, characterized as hoarse, which he attributes to dryness.
PAST MEDICAL AND SURGICAL HISTORY
The patient has a past medical history significant for atrial fibrillation and an episode involving a blood clot in his aorta, which was incidentally found two weeks ago during a cardioversion. The patient recalls a history of smoking cessation
approximately 15 years ago. There is no mention of prior surgical history.
SOCIAL HISTORY
The patient quit smoking approximately 15 years ago. He reports occasional alcohol consumption, describing it as a couple of nights a week.
PHYSICAL EXAM
see above
- Nursing notes reviewed and vital signs reviewed.
PLAN
- Contact the patients press leader to discuss the current situation.
- Obtain blood work to assess kidney function and other relevant parameters.
- Perform a chest X-ray to evaluate for pulmonary congestion or other pathology.
- Provide the patient with ice chips to address dryness while limiting fluid intake.
- The patient is advised that hospitalization might be necessary to manage fluid overload with intravenous diuretics, monitor kidney function, and possibly attempt another cardioversion if clinically indicated.
DIFFERENTIAL DIAGNOSIS
The Differential Diagnosis includes, in no particular order and is not limited to:
1. Congestive heart failure exacerbation
2. Uncontrolled atrial fibrillation
3. Pulmonary edema
4. Atrial flutter
5. Lung infection or pneumonia
6. Chronic obstructive pulmonary disease
7. Thrombosis or embolism complications
8. Heart valve disorders
9. Renal insufficiency secondary to diuretics
10. Laryngeal pathology affecting voice production
dallin perez
83 y/o M cabg, chf on lasix, afib on eliquis, cardioversion 11/13 kyaw
ongoing OLIVARES, leg edema, not improved after cardioversion
in afib with RVR, stable signs, no resp distress
chf
spoke iwth dr. chacon cards,
agree with plan of cardizem gtt and lasix iv
pt will need admission
may need repeta cardioversion, will defer to cards
<Rae Nevarez PA-C - Last Filed: 12/02/24 09:44>
*Pulse Oximetry
SaO2: 97
Oxygen Mode of Delivery: Room air
Patient hypoxic: no (97)
*Critical Care Note
Total Time (30-74mins, 75-104mins- exclusive of procedures): Not Applicable
ED Attending Note
<Rae Nevarez PA-C - Last Filed: 12/02/24 09:44>
-
Portions of this chart may have been created with voice recognition software.� Occasional wrong word or��sound alike� substitutions may have occurred due to the inherent limitations of voice recognition software.
<Saleem Johnson DO - Last Filed: 12/02/24 09:20>
ED Attending Note
Patient seen and examined by attending physician: Yes
I performed the substantive portion of visit, reviewed & personally made and approve the management plan that is documented in note by myself or MIRTA.: Yes
ED Attending Note:
Seen with PA examined independently 83 male PAF heart failure presents with fatigue shortness of breath rapid A-fib lower extremity edema
Discharge Plan
Departure
Patient Disposition: Admit
Date of Disposition: 12/02/24
Time of Disposition: 09:41
Admit to: Telemetry
Presentation/result/management discussed w/ accepting MD/DO: Hospitalist
Condition: Fair
Covid-19: Not Applicable
Discharge Problem:
CHF (congestive heart failure), Atrial fibrillation with rapid ventricular response
Prescriptions:
No Action
furosemide 40 MG tablet
40 mg PO DAILY
acetaminophen [Tylenol] 325 mg Tablet
325 mg PO Q6HPRN PRN (Reason: MILD pain)
metoprolol succinate 50 mg Tablet Extended Release 24 Hr
50 mg PO DAILY
Eliquis 5 mg Tablet
5 mg PO BID
Trelegy Ellipta 100-62.5-25 mcg Blister With Device
1 inh INHALATION R DAILY
Referrals:
Loren Watt PA-C [Family Provider, Internal Medicine]
Interventions
Interventions:
*Risk Screen - Suicide Last Done: 12/02/24 07:35
*General Assessment Last Done: 12/02/24 07:35
ED- Cardiac Assessment Last Done: 12/02/24 08:53
ED- Pulmonary Assessment Last Done: 12/02/24 08:53
Discharge Date and Time
Print Language: VIET[place]ESE
[2024-12-02 08:50] LABS: Hematocrit 48.5 % (39.0-52.0); Hemoglobin 15.5 g/dL (13.0-18.0); Mean Corp Hgb Conc. 32.0 g/dL (33.0-37.0); Mean Corpuscular Volume 99.8 fL (80.0-94.0); Nucleated Red Blood Cells % 0 % (-); Platelet Count 141 10^3/uL (130-400); Red Cell Dist. Width 16.0 % (11.5-14.5)
[2024-12-02 09:19] LABS: ALT (SGPT) 24 U/L (0-50); AST (SGOT) 31 U/L (17-59); Albumin 3.9 g/dl (3.5-5.0); Alkaline Phosphatase 136 U/L (38-126); Blood Urea Nitrogen 36 mg/dl (9-20); Calcium 9.5 mg/dl (8.4-10.2); Carbon Dioxide 29 mmol/L (22-30); Chloride 107 mmol/L (98-107); Estimated Creatinine Clearance 48 ml/min; Glucose 103 mg/dl (70-99); Magnesium 2.2 mg/dl (1.6-2.3); Potassium 4.7 mmol/L (3.5-5.1); Sodium 141 mmol/L (135-145); Total Protein 6.8 g/dl (6.3-8.2); eGFR > 60.00
[2024-12-02] MEDS: CARDIZEM 125 IV ×2 (09:51→21:55)
[2024-12-02] MEDS: LASIX 40 MG IV (09:51)
--- NOTE | 2024-12-02 10:00 | HPS.HSE ---
Family Physician
<Citlali Ramon MD, Resident - Last Filed: 12/02/24 11:26>
-
Family Physician: Loren Watt
Chief Complaint
<Citlali Ramon MD, Resident - Last Filed: 12/02/24 11:26>
-
Dyspnea on exertion and leg swelling.
History of Present Illness
83-year-old male with PMHx significant for paroxysmal A-fib, recent diagnosis of intramural thoracic aortic thrombus, ischemic cardiomyopathy, CAD s/p CABG, PAD, hypertension, bilateral carotid artery stenosis, chronic pain, vitamin D deficiency,
aortic stenosis s/p valve replacement, COPD, hyperlipidemia, lumbar spinal stenosis presents to the ER for evaluation of shortness of breath on exertion and leg swelling.
On 11/06/2024, patient underwent cardioversion and was restored to normal rhythm, but he thinks he was back into abnormal rhythm after some time following cardioversion. Patient states that about 1 month ago, he used to mow his lawn and also blow
the leaves in his yard using a leaf blower. But currently his mobility status decreased severely because of the swelling of the legs and dyspnea on exertion. He found himself huffing and puffing to take the flight of stairs in his house over the
last 2 weeks, and he states that he was not able to walk long distances. His cardiology doubled his Lasix dose for 3 days which gave him intermediate relief and patient felt worsening dyspnea on exertion after switching back to his baseline Lasix
dose of 40 mg. He reports to be having orthopnea for the last 1 week states that he had to sleep in the recliner to feel comfortable, and overnight he reports having PND. He denies having chest pain syncope or near syncopal episodes. He also
reports to feeling progressively fatigued over the last 1 month.
Patient also states that his skin, throat feels extremely dry and attributes his hoarseness of voice to the dryness.
He states that he was compliant with his Eliquis and metoprolol and never missed a dose.
Upon review of systems he denies having fevers, chills, sick contacts, nausea, emesis, dizziness, change in bowel or bladder habits, hematuria, melena or hematochezia, focal weakness.
Upon arrival to the ER, his blood pressure was 137/96, his respiratory rate was at 30, he is afebrile with a heart rate of 108 and was found to be in A-fib with RVR. He was given single dose of Lasix 40 mg and was started on Cardizem drip.
Medical History
<Citlali Ramon MD, Resident - Last Filed: 12/02/24 11:26>
Past Medical History
Past Medical History: Reports Other (paroxysmal A-fib, recent diagnosis of intramural thoracic aortic thrombus, ischemic cardiomyopathy, CAD s/p CABG, PAD, hypertension, bilateral carotid artery stenosis, chronic pain, vitamin D deficiency, aortic
stenosis s/p valve replacement, COPD, hyperlipidemia, lumbar spinal stenosis)
Past Surgical History: Reports Other (Left TKA, right KEKE, bilateral cataract extractions with IOL placements, left iliac stent, 07/13/2017 right inguinal hernia repair, aortic valve replacement with CABG on 03/12/2018, LT L5 TFESI no SCD on 05/23/23.)
Social History
Tobacco: Former Smoker ([id number] smoking history, quit smoking more than 10 years ago.)
Alcohol: Occasional (2 drinks, every other day)
Drug: None
Personal:
Living: With Family
Employment: Retired
Family History
Family History: Other (Father had UT and heart disease, mother had colorectal cancer, paternal uncle had CAD, maternal aunt had colorectal cancer,)
Allergies / Home Medications
Allergies reflects when Allergies were last updated in [facility].
Home Medications with original date entered in [facility] [facility]
Allergy/Medication List:
Allergies
Allergy/AdvReac Type Severity Reaction Status Date / Time
No Known Drug Allergies Allergy na Verified 12/02/24 07:36
Home Medications
furosemide 40 mg tablet 40 mg PO DAILY Fluid Retention/Swelling 05/26/24
acetaminophen 325 mg tablet (Tylenol) 325 mg PO Q6HPRN PRN MILD pain 11/13/24
apixaban 5 mg tablet (Eliquis) 5 mg PO BID Heart Disease/Condition 11/13/24
fluticasone fur. 100 mcg-umeclid 62.5 mcg-vilant 25 mcg inhalat.powder (Trelegy Ellipta) 1 inh inhalation R DAILY SOB 11/13/24
metoprolol succinate 50 mg tablet,extended release 24 hr 50 mg PO DAILY Heart Disease/Condition 11/13/24
Review of Systems
<Citlali Ramon MD, Resident - Last Filed: 12/02/24 11:26>
-
History Source: Patient
A 12 point ROS was completed and negative except as noted: Yes
Physical Exam
<Citlali Ramon MD, Resident - Last Filed: 12/02/24 11:26>
Vital Signs
Vital Signs
Temp Pulse Resp BP Pulse Ox
97.1 F 108 30 137/96 97
12/02/24 08:37 12/02/24 08:00 12/02/24 08:00 12/02/24 07:35 12/02/24 08:53
Physical Exam
General: No Apparent Distress and Comfortable
HEENT: Moist mucous membranes
Respiratory: Crackles (Fine inspiratory and lower lobes); No Clear, Wheezes, Rales or Rhonchi
Cardiac: S1/S2, Irregular Rhythm, Peripheral Edema (2+ pitting, extending about his knees into mid thighs.) and JVD; No Murmur, Rub, Gallop or HJR
GI: Soft, Non Tender, Non Distended and Normal Bowel Sounds
Musculoskeletal: No Clubbing, No Cyanosis, Edema, Left Lower Extremity and Edema, Right Lower Extremity
Skin: Warm, Dry and Lesions
Neuro: AO x 3 and No Motor Deficits
Psych: Calm
Laboratory Results
<Citlali Ramon MD, Resident - Last Filed: 12/02/24 11:26>
-
12/02/24 08:34
12/02/24 08:34
Laboratory Results
Total Bilirubin 1.9 mg/dl (0.2-1.3) H 12/02/24 08:34
AST 31 U/L (17-59) 12/02/24 08:34
ALT 24 U/L (0-50) 12/02/24 08:34
Alkaline Phosphatase 136 U/L (38-126) H 12/02/24 08:34
Data Reviewed
<Citlali Ramon MD, Resident - Last Filed: 12/02/24 11:26>
-
Diagnostic Radiology: Image Personally Visualized and interpreted, Report Reviewed by me, Discussed with Physician and Discussed with Patient
Medical Tests (Nuc Med, Echo, EKG etc): Image Personally Visualized and interpreted, Report Reviewed by me, Discussed with Physician and Discussed with Patient
Lab Data: Labs Reviewed by me, Discussed with Physician and Discussed with Patient
Impression/Plan
<Citlali Ramon MD, Resident - Last Filed: 12/02/24 11:26>
-
IMPRESSION: 83-year-old male with PMHx significant for paroxysmal A-fib, recent diagnosis of intramural thoracic aortic thrombus, ischemic cardiomyopathy, CAD s/p CABG, PAD, hypertension, bilateral carotid artery stenosis, chronic pain, vitamin D
deficiency, aortic stenosis s/p valve replacement, COPD, hyperlipidemia, lumbar spinal stenosis presents to the ER for evaluation of shortness of breath on exertion and leg swelling. His proBNP is at 12,500, and he is found to be in acute
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
PLAN:
# Acute CHF
Admit to IVU.
Likely exacerbated from A-fib with RVR.
History of HFrEF with EF of 35 to 40% in 07/2021, and 09/2021.
S/p 1 dose of IV Lasix 40 mg.
IV Lasix 40 mg once a day. Obtain echocardiogram.
Monitor serum creatinine with Lasix.
8 pounds of weight gain, history of A-fib with recent cardioversion on 11/13/2024.
Start the patient on fluid restriction, 2 g sodium diet, daily weights.
Continue beta-carolin.
GDMT as tolerated per cardiology.
Cardiology consulted, on board.
# A-fib with RVR-
S/p cardioversion on 11/13/2024, remote history of ablation-in 2022.
Currently on diltiazem drip.
Cardiology consulted, appreciate cardiology inputs.
[id number] score-7, patient is on Eliquis 5 mg twice daily.
Continue Eliquis 5 mg twice daily, patient reports no missed doses.
Continue Toprol-XL.
# Essential hypertension-
Continue Lasix, monitor blood pressure.
# COPD-
Continue Trelegy Ellipta home regiment.
# Conditions GARAGEMAN-
Lumbar spinal stenosis
Hyperlipidemia
PAD s/p femoral stent
Vitamin D deficiency
# DVT prophylaxis-
Patient is on Eliquis
# CODE STATUS-
DNR.
Most recent workup-
Chest x-ray-12/02/2024-small left and right sided pleural effusions
EKG-A-fib with RVR
S/p cardioversion- 11/13/2024
CARRILLO-11/13/2024-
Normal left atrial appendage with moderate dilation of left atrium and no evidence of left atrial thrombus
Moderately dilated right atrium
Bovine pericardial aortic valve
Mild mitral valve regurgitation
Mild tricuspid regurgitation
PASP-35 mmHg with right atrial pressure of 3 mmHg
Grade 3 atheroma in the aortic arch.
CT angiogram chest/abdomen/pelvis-11/13/2024
Mural thrombus along the posterior wall of the mid to distal thoracic aorta measuring 0.9 x 1.9 cm over an 8.2 cm in length segment. Severe aortobiiliac atherosclerosis. Eccentric mural thrombus in the abdominal aorta.
No aortic aneurysm, dissection, or intramural hematoma.
Patent stent in the left common iliac artery.
The bilateral SFAs appear to be chronically occluded. Both lower extremities are likely supplied by collaterals from the profunda femoris arteries.
Small left and trace right pleural effusions.
5 mm pulmonary nodule along the right major fissure, possible representing an intrapulmonary lymph node. An optional follow-up chest CT can be performed in 12 months if the patient is considered to be at high risk.
Mild abdominopelvic ascites.
Severe compression fracture of the L1 vertebral body, new compared to the lumbar spine MRI from 06/18/2024, age indeterminate but may be acute or subacute.
EP study-07/26/2022-
SUMMARY:
- Mapping and ablation to isolate the PVs
- Additional AF ablation set after PVI.
- 3-D Electroanatomical Mapping
- Intracardiac Ultrasound
Post ablation, I discussed today's findings and results with the patient's ex-, Petra.
RECOMMENDATIONS:
- Observe in monitored bed.
- Maintain oral anticoagulation.
- Continue BB
- PPI X 30 days (Protonix 40 mg twice daily for 30 days) to reduce the risk of esophageal injury after left atrial posterior wall ablation
- Office visit with me in 3 months.
- Continue cardiovascular care with Dr Héctor Osorio
<Sivakumar Mcgowan DO - Last Filed: 12/02/24 11:35>
-
IMPRESSION: 83-year-old male with PMHx significant for paroxysmal A-fib, recent diagnosis of intramural thoracic aortic thrombus, ischemic cardiomyopathy, CAD s/p CABG, PAD, hypertension, bilateral carotid artery stenosis, chronic pain, vitamin D
deficiency, aortic stenosis s/p valve replacement, COPD, hyperlipidemia, lumbar spinal stenosis presents to the ER for evaluation of shortness of breath on exertion and leg swelling. His proBNP is at 12,500, and he is found to be in acute
congestive heart failure likely from [id number] with RVR.
PLAN:
# Acute CHF
Admit to IVU.
Likely exacerbated from A-fib with RVR.
History of HFrEF with EF of 35 to 40% in 07/2021, and 09/2021.
S/p 1 dose of IV Lasix 40 mg.
IV Lasix 40 mg once a day. Obtain echocardiogram.
Monitor serum creatinine with Lasix.
8 pounds of weight gain, history of A-fib with recent cardioversion on 11/13/2024.
Start the patient on fluid restriction, 2 g sodium diet, daily weights.
Continue beta-carolin.
GDMT as tolerated per cardiology.
Cardiology consulted, on board.
# A-fib with RVR-
S/p cardioversion on 11/13/2024, remote history of ablation-in 2022.
Currently on diltiazem drip.
Cardiology consulted, appreciate cardiology inputs.
[id number] score-7, patient is on Eliquis 5 mg twice daily.
Continue Eliquis 5 mg twice daily, patient reports no missed doses.
Continue Toprol-XL.
# Essential hypertension-
Continue Lasix, monitor blood pressure.
# COPD-
Continue Trelegy Ellipta home regiment.
# Conditions GARAGEMAN-
Lumbar spinal stenosis
Hyperlipidemia
PAD s/p femoral stent
Vitamin D deficiency
# DVT prophylaxis-
Patient is on Eliquis
# CODE STATUS-
DNR.
Most recent workup-
Chest x-ray-12/02/2024-small left and right sided pleural effusions
EKG-A-fib with RVR
S/p cardioversion- 11/13/2024
CARRILLO-11/13/2024-
Normal left atrial appendage with moderate dilation of left atrium and no evidence of left atrial thrombus
Moderately dilated right atrium
Bovine pericardial aortic valve
Mild mitral valve regurgitation
Mild tricuspid regurgitation
PASP-35 mmHg with right atrial pressure of 3 mmHg
Grade 3 atheroma in the aortic arch.
CT angiogram chest/abdomen/pelvis-11/13/2024
Mural thrombus along the posterior wall of the mid to distal thoracic aorta measuring 0.9 x 1.9 cm over an 8.2 cm in length segment. Severe aortobiiliac atherosclerosis. Eccentric mural thrombus in the abdominal aorta.
No aortic aneurysm, dissection, or intramural hematoma.
Patent stent in the left common iliac artery.
The bilateral SFAs appear to be chronically occluded. Both lower extremities are likely supplied by collaterals from the profunda femoris arteries.
Small left and trace right pleural effusions.
5 mm pulmonary nodule along the right major fissure, possible representing an intrapulmonary lymph node. An optional follow-up chest CT can be performed in 12 months if the patient is considered to be at high risk.
Mild abdominopelvic ascites.
Severe compression fracture of the L1 vertebral body, new compared to the lumbar spine MRI from 06/18/2024, age indeterminate but may be acute or subacute.
EP study-07/26/2022-
SUMMARY:
- Mapping and ablation to isolate the PVs
- Additional AF ablation set after PVI.
- 3-D Electroanatomical Mapping
- Intracardiac Ultrasound
Post ablation, I discussed today's findings and results with the patient's ex-, Petra.
RECOMMENDATIONS:
- Observe in monitored bed.
- Maintain oral anticoagulation.
- Continue BB
- PPI X 30 days (Protonix 40 mg twice daily for 30 days) to reduce the risk of esophageal injury after left atrial posterior wall ablation
- Office visit with me in 3 months.
- Continue cardiovascular care with Dr Héctor Osorio
Attending Note:
Patient seen, examined and discussed in detail with resident, and I agree with the above note.
Gen-AAOx3, NAD
HEENT-NC, AT, anicteric, clear oral mm
Neck-supple, positive JVD to angle of jaw
CV-irregular, tachycardic, no M, +S1/S2
Lungs-clear B/L
Abd-soft, NT, ND
Ext-symmetrical bilateral lower extremity edema to thighs
Musculoskeletal-no cyanosis, clubbing
Skin-warm and dry
Neuro-grossly non-focal
Psych-calm, cooperative
Acute on chronic heart failure with reduced EF -suspect multifactorial etiology including rapid atrial fibrillation, excessive fluid intake.
Admit to telemetry. IV Lasix twice daily. Fluid and sodium restriction. Check echocardiogram. Consult cardiology.
BNP 12,500.
Chest x-ray with small bilateral pleural effusions.
Recommend alcohol abstinence, sodium and fluid restriction on discharge. Discussed in detail with patient and .
He admits to missing doses of Lasix when he is busy working.
Rapid atrial fibrillation -underwent cardioversion November 13. History of radiofrequency ablation.
Currently on IV Cardizem drip for rate control. Continue metoprolol and Eliquis.
Check TSH.
Thoracic aortic mural thrombus -noted on CTA, 11/13/2024. Continue anticoagulation. Follow-up with vascular surgery.
COPD without exacerbation -stable.
Essential hypertension -stable.
PAD
Hyperlipidemia
Lumbar stenosis
DNR
updated at the bedside.
[2024-12-02 14:11] LABS: INR 1.54; PT 18.7 Sec (11.4-14.6)
[2024-12-02 14:12] LABS: APTT 35.9 Sec (23.4-35.0)
--- NOTE | 2024-12-02 14:31 | CON.CAR ---
Addendum entered and electronically signed by Paco Ha MD 12/02/24 16:22:
Patient seen and examined
Agree with SHAKIRA Danielle's note and assessment
Presents in atrial fibrillation
Prior history reviewed
2 to 3 weeks of dyspnea on exertion
Prior history of nonischemic and ischemic cardiomyopathy with history of AVR CABG in 2019
Examination:
H&T normocephalic atraumatic
JVP 7
Cor regular regular soft 1/6 murmur
Lungs diminished left greater than right but otherwise clear
Abdomen soft nontender positive bowel sounds
1+ extremity edema
Nonfocal neurologically
Appears mildly agitated
Primary transmission rebuilder: Dr. Osorio
Impression:
A-fib with RVR
Lower extremity edema
Heart failure reduced EF
PAD status post left common iliac stent (patent on CTA chest/abdomen/pelvis 10/2024)
Hypertension
COPD
History of aortic stenosis status post bioprosthetic AVR
History of CAD status post CABG
Mural thrombus of thoracic aorta
Lumbar stenosis
carotid stenosis B/L
Previous cardiovascular testing:
CARRILLO 11/13/2024: Mild to moderately decreased LV function, LV wall motion diffusely hypokinetic, RV systolic function mildly decreased, no left atrial thrombus, #23 bovine pericardial tissue aortic valve, mild MR, grade 3 atheroma in the arch and
large thrombus (not mobile) hugging the wall of the descending aorta.
Echo 10/05/2021: EF 35 to 40%, mild MR, mild TR
Plan:
83-year-old male with history of paroxysmal afib s/p PVI 07/2022 and most recently CARRILLO/CV 11/13/2024, HFrEF, aortic stenosis, CAD, status post bioprosthetic AVR and CABG x 3 in 2019, severe COPD, peripheral arterial disease s/p L iliac stent, spinal
stenosis presents to ED with worsening lower extremity edema, OLIVARES, fatigue despite recent uptitration in outpatient diuretics and found to be in afib with RVR and acute on chronic HFrEF. Pro BNP 12,500.
Plan:
1. afib
-currently rate controlled on Cardizem gtt @10
-anticoagulated w/ Eliquis. He has not missed any doses in outpatient setting.
- Uptitrate outpatient beta-carolin with goal of getting patient off calcium channel carolin in setting of heart failure reduced EF
-Status post CARRILLO/cardioversion 11/13/2024 which restored sinus rhythm after 300 J shock, however now with recurrent afib
-Patient will likely need an antiarrhythmic to maintain sinus rhythm.
-Rec: He is agreeable to start amiodarone at 400 mg tid and then repeat CV on 12/04. He is also agreeable to stay for 1 to 2 days of diuresis and repeat attempted cardioversion on amiodarone therapy on December 04
-Could consider repeat PVI with pulsed field energy. He is status post radiofrequency PVI 07/2022 with isolation of the 5 pulmonary veins as well as posterior wall of the left atrium
2. acute HFrEF
-cont IV diuresis
-Currently on Toprol 50 mg daily.
- advance GDMT start DORINA/ARB. Was previously on losartan.
-creatinine 36/1.1 12/02/2024
-eventually consider MRA and SGLT2-I
3. PAD-
-of note, CARRILLO on 11/13/2024 showed no left atrial thrombus with a significantly large nonmobile thrombus hugging the wall of the descending aorta. A CT chest/abdomen/pelvis for further clarification was performed and reviewed with vascular surgery
Dr. Garner. Continued anticoagulation as well as follow-up with vascular surgery was advised.
-has known h/o B/L car
4. HTN
-BPs acceptable on current regimen
Original Note:
Consultation
Consultation Request
Date/Time Consultation Requested: 12/02/2024, 1306
Date/Time Consultation Performed: 12/02/2024, 1430
Requesting Provider: Dr Ramon
Performing Provider: SHAKIRA Pickering for Dr Thomas
Reason for Consultation: Afib, HF
Medical History
-
Chief Complaint: Lower extremity edema
History of Present Illness:
83-year-old male with history of paroxysmal atrial fibrillation status post PVI 07/2022, aortic stenosis, coronary artery disease, status post bioprosthetic AVR and CABG x 3 in 2019, heart failure reduced EF in setting of A-fib, severe COPD,
peripheral arterial disease, spinal stenosis presents to ED with worsening lower extremity edema over the past couple weeks.
He was seen in the office by Dr. Osorio in October 2024 and was found to be in rate controlled atrial fibrillation and volume overloaded. Lasix was uptitrated and he underwent CARRILLO/cardioversion on 11/13/2024. A 300 J shock restored sinus rhythm.
Of note, CARRILLO showed no left atrial thrombus with a significantly large nonmobile thrombus hugging the wall of the descending aorta. A CT chest/abdomen/pelvis for further clarification was performed and reviewed with vascular surgery Dr. Garner.
Continued anticoagulation as well as follow-up with vascular surgery was advised.
Following the cardioversion on 11/13/2024 he continued to experience dyspnea on exertion, increased lower extremity edema limiting his ability to walk, fatigue, and orthopnea. Lasix was doubled for 3 days twice with no improvement in symptoms and he
presented today to ED.
ED workup: proBNP 12,500, BUN/creatinine 36/1.1, NA 141, K4.7
Chest x-ray: Small left and tiny right pleural effusions
EKG: A-fib with RVR 114 bpm, nonspecific ST-T wave abnormality, PVCs
In ED patient was started on Cardizem drip and given dose of Lasix 40 IV x 1. Continues Eliquis 5 mg twice daily with no missed doses.
Past medical history:
Paroxysmal atrial fibrillation
- Status post PVI 07/26/2022
- Status post cardioversion 07/2021
Aortic stenosis, CAD status post #23 AVR Wong bovine 03/12/2018 and CABG x3 03/12/2018 (SUÁREZ to LAD, SVG to OM sequential to right PDA)
Severe COPD
PAD status post L iliac stent in 2002 at [facility] [place] for claudication
Former smoker
Spinal stenosis
Past Medical History
Past Medical History: Other (As above in HPI)
Past Surgical History: Other (Left TKA, right KEKE, bilateral cataracts, left iliac stent, right inguinal hernia repair 06/2017, AVR and CABG 03/12/2018)
Social History
Tobacco: Former Smoker
Alcohol: Occasional
Family History
Family History: Other (Father with ID, sister and 2 brothers with diabetes, mother colon cancer, paternal uncle CAD)
Allergies / Home Medications
Allergy/AdvReac Type Severity Reaction Status Date / Time
No Known Drug Allergies Allergy na Verified 12/02/24 07:36
�Medication �Instructions �Recorded �Confirmed �Type
furosemide 40 mg tablet 40 mg PO DAILY Fluid 05/26/24 12/02/24 History
Retention/Swelling
acetaminophen 325 mg tablet 325 mg PO Q6HPRN PRN MILD pain 11/13/24 12/02/24 History
(Tylenol)
apixaban 5 mg tablet (Eliquis) 5 mg PO BID Heart Disease/Condition 11/13/24 12/02/24 History
fluticasone fur. 100 mcg-umeclid 1 inh inhalation R DAILY SOB 11/13/24 12/02/24 History
62.5 mcg-vilant 25 mcg
inhalat.powder (Trelegy Ellipta)
metoprolol succinate 50 mg 50 mg PO DAILY Heart 11/13/24 12/02/24 History
tablet,extended release 24 hr Disease/Condition
Review of Systems
-
History Source: Patient
All other systems: Negative unless noted
Physical Exam
Vital Signs
Temp Pulse Resp BP Pulse Ox
96.1 F L 91 18 121/82 95
12/02/24 12:59 12/02/24 13:07 12/02/24 12:59 12/02/24 13:07 12/02/24 14:16
GEN: No distress, awake, Ox3
HEENT: supple, anicteric, mmm
LUNGS: CTA, no wheezes/rales
CV: Irregular, irregular, no murmur
ABD: soft, BS+, NT/ND
EXT: 1+ lower extremity edema
NEURO: Gross non-focal
SKIN: Bilateral lower extremity venous stasis color changes
Lab Results
12/02/24 08:34
12/02/24 08:34
Eco-Q-Yuzsolvshpf Pept [id number] pg/ml 12/02/24 08:34
Impression / Plan
-
PCP: Cory Chambers
Primary transmission rebuilder: Dr. Osorio
Impression:
A-fib with RVR
Lower extremity edema
Heart failure reduced EF
PAD status post left common iliac stent (patent on CTA chest/abdomen/pelvis 10/2024)
Hypertension
COPD
History of aortic stenosis status post bioprosthetic AVR
History of CAD status post CABG
Mural thrombus of thoracic aorta
Lumbar stenosis
carotid stenosis B/L
Previous cardiovascular testing:
CARRILLO 11/13/2024: Mild to moderately decreased LV function, LV wall motion diffusely hypokinetic, RV systolic function mildly decreased, no left atrial thrombus, #23 bovine pericardial tissue aortic valve, mild MR, grade 3 atheroma in the arch and
large thrombus (not mobile) hugging the wall of the descending aorta.
Echo 10/05/2021: EF 35 to 40%, mild MR, mild TR
Plan:
83-year-old male with history of paroxysmal afib s/p PVI 07/2022 and most recently CARRILLO/CV 11/13/2024, HFrEF, aortic stenosis, CAD, status post bioprosthetic AVR and CABG x 3 in 2019, severe COPD, peripheral arterial disease s/p L iliac stent, spinal
stenosis presents to ED with worsening lower extremity edema, OLIVARES, fatigue despite recent uptitration in outpatient diuretics and found to be in afib with RVR and acute on chronic HFrEF. Pro BNP 12,500.
Plan:
1. afib
-currently rate controlled on Cardizem gtt @10
-anticoagulated w/ Eliquis. He has not missed any doses in outpatient setting.
- Uptitrate outpatient beta-carolin with goal of getting patient off calcium channel carolin in setting of heart failure reduced EF
-Status post CARRILLO/cardioversion 11/13/2024 which restored sinus rhythm after 300 J shock, however now with recurrent afib
-Patient will likely need an antiarrhythmic to maintain sinus rhythm.
-Rec: start Amiodarone at 400 mg tid and then repeat CV on 12/04
-Could consider repeat PVI with pulsed field energy. He is status post radiofrequency PVI 07/2022 with isolation of the 5 pulmonary veins as well as posterior wall of the left atrium
2. acute HFrEF
-cont IV diuresis
-Currently on Toprol 50 mg daily.
- advance GDMT start DORINA/ARB. Was previously on losartan.
-creatinine 36/1.1 12/02/2024
-eventually consider MRA and SGLT2-I
3. PAD-
-of note, CARRILLO on 11/13/2024 showed no left atrial thrombus with a significantly large nonmobile thrombus hugging the wall of the descending aorta. A CT chest/abdomen/pelvis for further clarification was performed and reviewed with vascular surgery
Dr. Garner. Continued anticoagulation as well as follow-up with vascular surgery was advised.
-has known h/o B/L car
4. HTN
-BPs acceptable on current regimen
Data Reviewed
-
EKG: Tracing Personally Visualized and interpreted
Labs: Labs Reviewed by me
--- NOTE | 2024-12-02 14:33 | PTCARENOTE ---
received patient from ER, monitor placed, Afib with a HR of 82, VSS. IV Cardizem @ 10ml/hr via right forearm without difficulties. patient is a FR from a recent fall which on the front chest upper left hand side is an ecchymotic area, FR band on. he
also has bilat. plus 2 edema on LE , reddened blisters R > L. Doppler pulses bilaterally. CHF folder given, reviewed booklet patient is semi interested. patient is a DNR, band on. oriented to room and surroundings. call kwong within reach. Echo will
be done at bedside.
--- NOTE | 2024-12-02 16:44 | CM ---
spoke to pt in room, he is prev indep, lives with his in a 2 story home with no step sto enter. he denies any dc planning needs. he has a cane and a walker he uses when needed. plan is for dc to home when medically stable.
[2024-12-02] MEDS: ELIQUIS 5 MG PO (19:35)
[2024-12-02] MEDS: SYMBICORT 80/4.5 MCG INHALER 2 PUFF INH (20:07)
[2024-12-02] MEDS: MELATONIN 3 MG PO (21:55)
[2024-12-02] MEDS: PACERONE 400 MG PO (21:55)
--- NOTE | 2024-12-02 22:25 | PTCARENOTE ---
Received patient at change of shift. Afib on the monitor, HR in the 70s. Cardizem running as per protocol, see documentation. Doppler pedal pulses. No complaints from pt at this time, call kwong within reach.
[2024-12-02] MEDS: TYLENOL 325 MG PO (23:02)
[2024-12-03] VITALS (7 sets, daily range): BP systolic 93–130; BP diastolic 70–83; BMI 25.7
[2024-12-03] MEDS: BENADRYL 12.5 MG IV (01:54)
[2024-12-03 02:10] LABS: Hematocrit 44.6 % (39.0-52.0); Hemoglobin 14.6 g/dL (13.0-18.0); Mean Corp Hgb Conc. 32.7 g/dL (33.0-37.0); Mean Corpuscular Volume 97.6 fL (80.0-94.0); Nucleated Red Blood Cells % 0.3 % (-); Platelet Count 138 10^3/uL (130-400); Red Cell Dist. Width 15.9 % (11.5-14.5)
--- NOTE | 2024-12-03 02:19 | PTCARENOTE ---
Patient rang call kwong and complained of being awake and that the melatonin didn't work for him. PRN Tylenol administered as per pt request.
Patient was still anxious and awake following the Tylenol. [facility] Jen Alvarado made aware. IV Benadryl ordered and administered.
[2024-12-03 03:16] LABS: ALT (SGPT) 23 U/L (0-50); AST (SGOT) 28 U/L (17-59); Albumin 3.7 g/dl (3.5-5.0); Alkaline Phosphatase 126 U/L (38-126); Blood Urea Nitrogen 39 mg/dl (9-20); Calcium 9.6 mg/dl (8.4-10.2); Carbon Dioxide 23 mmol/L (22-30); Chloride 106 mmol/L (98-107); Estimated Creatinine Clearance 41 ml/min; Glucose 112 mg/dl (70-99); Magnesium 2.1 mg/dl (1.6-2.3); Potassium 4.5 mmol/L (3.5-5.1); Sodium 137 mmol/L (135-145); Total Protein 6.4 g/dl (6.3-8.2); eGFR 54.85
[2024-12-03] MEDS: SPIRIVA RESPIMAT 2.5 MCG 2 PUFF INH (07:24)
[2024-12-03] MEDS: SYMBICORT 80/4.5 MCG INHALER 2 PUFF INH ×2 (07:24→20:40)
[2024-12-03] MEDS: TOPROL XL 50 MG PO (08:14)
[2024-12-03] MEDS: PACERONE 400 MG PO (08:14)
[2024-12-03] MEDS: ELIQUIS 5 MG PO ×2 (08:14→20:29)
[2024-12-03] MEDS: LASIX 40 MG IV (08:14)
--- NOTE | 2024-12-03 08:59 | W.PN.HOSP.TC ---
Today's Communication/Plan
-
Continue diuresis
Assessment / Plan
Assessment / Plan
Gen-AAOx3, NAD
HEENT-NC, AT, anicteric, clear oral mm
Neck-supple
CV-reg, no M, +S1/S2
Lungs-clear B/L
Abd-soft, NT, ND
Ext-bilateral lower extremity edema
Musculoskeletal-no cyanosis, clubbing
Skin-warm and dry
Neuro-grossly non-focal
Psych-calm, cooperative
Acute on chronic heart failure with reduced EF -suspect multifactorial etiology including rapid atrial fibrillation, excessive fluid intake.
Volume status improving, less lower extremity swelling. Continue IV Lasix. Monitor renal function and electrolytes closely. Creatinine noted to be 1.3 today.
Echocardiogram shows worsening LVEF, 15 to 20%. Mild to moderate MR with dilated LA. Dilated and hypokinetic RV RV, dilated RA, moderate to severe TR.
BNP 12,500.
Chest x-ray with small bilateral pleural effusions.
Recommend alcohol abstinence, sodium and fluid restriction on discharge. Discussed in detail with patient and .
He admits to missing doses of Lasix when he is busy working.
Rapid atrial fibrillation -underwent cardioversion November 13. History of radiofrequency ablation.
Currently on IV Cardizem drip for rate control. Continue metoprolol and Eliquis.
Amiodarone started by cardiology with plans for cardioversion this admission.
Subclinical hypothyroidism -TSH 10.1, free T4 1.5. Recommend repeating labs as outpatient, PCP follow-up.
Thoracic aortic mural thrombus -noted on CTA, 11/13/2024. Continue anticoagulation. Follow-up with vascular surgery.
COPD without exacerbation -stable.
Essential hypertension -stable.
PAD
Hyperlipidemia
Lumbar stenosis
Chronic insomnia -received 3 mg of melatonin last night without sleep, will increase to 5 mg. Will avoid trazodone or other agents that can worsen his already prolonged QT interval.
DNR
updated at the bedside.
Anticipated Discharge: > 48 hours
Subjective/Interval History
-
Date of Service: December 03, 2024
Patient seen and examined. Complaining of insomnia. Denies shortness of breath.
Objective Data
-
Labs:
Laboratory Results
12/03/24
01:57
WBC 7.0
Hgb 14.6
Hct 44.6
Plt Count 138
Sodium 137
Potassium 4.5
Chloride 106
Carbon Dioxide 23
BUN 39 H
Creatinine 1.3
Glucose 112 H
Calcium 9.6
Total Bilirubin 2.1 H
AST 28
ALT 23
Alkaline Phosphatase 126
Vital Signs:
Vital Signs
Temp Pulse Resp BP Pulse Ox
97.4 F 78 16 130/76 97
12/03/24 07:25 12/03/24 08:14 12/03/24 07:25 12/03/24 08:14 12/03/24 07:25
I&O
12/02/24 12/03/24 12/04/24
06:59 06:59 06:59
Intake Total 360 / 360
Output Total 500 / 500
Balance -140 / -140
Review of Systems
-
History Source: Patient
All other systems: Reviewed and negative
--- NOTE | 2024-12-03 12:55 | PTCARENOTE ---
Pt is AOx3, no complaints of pain or discomfort. OOB x1 with walker. Afib on tele monitor, VSS. Call kwong within reach.
--- NOTE | 2024-12-03 15:42 | W.PN.CARDCBS ---
Addendum entered and electronically signed by Marshall Walsh MD 12/03/24 16:41:
I saw and examined the patient.
The Road Machinery Inspector's note was reviewed and I agree with the note.
Comment: Briefly, 83-year-old man past medical history of heart failure with reduced ejection fraction (EF 15-20%) and paroxysmal atrial fibrillation who presents in rapid atrial fibrillation and acute heart failure
With diuresis patient reports that his lower extremity edema significantly improved
Would continue IV Lasix today with tentative transition back to oral in next 24 to 48 hours
Continue metoprolol
Consider adding low-dose DORINA/ARB/ARNI but I am unsure that his blood pressure will tolerate
Heart rate in atrial fibrillation is better controlled today, but was still on low-dose diltiazem drip this morning at the time of my evaluation, ideally would be weaned off calcium channel carolin with reduced EF
Amiodarone 400 mg TID added yesterday for adjunct rate control
QTc is prolonged by ECG today. Will cut back amiodarone back to 200 mg twice daily for 1 month and then decrease to 200mg daily.
Tentative plan for direct-current cardioversion in a.m. if patient remains in A-fib. No left atrial appendage thrombus on recent CARRILLO and patient reports he has been reliably anticoagulated therefore I think that this can safely be performed without
repeat CARRILLO.
Original Note:
Today's Communication / Plan
-
Decrease amiodarone dose and recheck ECG in a.m.
CV in a.m.
Impression / Plan
-
PCP: Cory Chambers
Primary grey percher: Dr. Osorio
Impression:
Admitted with rapid A-fib and acute HF 12/02/2024
A-fib with RVR
Paroxysmal A-fib
s/p PVI 07/2022
s/p CV successful 11/13/2024
Acute HFrEF
CM EF 15 to 20% by echo 12/02/2024
PAD status post left common iliac stent (patent on CTA chest/abdomen/pelvis 10/2024)
Hypertension
COPD
History of aortic stenosis status post bioprosthetic AVR
History of CAD status post CABG
Mural thrombus of thoracic aorta
Lumbar stenosis
carotid stenosis B/L
Echo 10/05/2021: EF 35 to 40%, mild MR, mild TR
CARRILLO 11/13/2024: Mild to moderately decreased LV function, LV wall motion diffusely hypokinetic, RV systolic function mildly decreased, no left atrial thrombus, #23 bovine pericardial tissue aortic valve, mild MR, grade 3 atheroma in the arch and
large thrombus (not mobile) hugging the wall of the descending aorta.
Echo 12/02/2024: EF 15 to 20%, mild to moderate MR, tissue AVR with peak/mean 13/7 mmHg and no aortic regurgitation, dilated and hypokinetic RV, moderate to severe TR with PAP 47 mmHg
Plan:
-Patient presented to the ER with increased LE edema and was found to be in rapid A-fib and was admitted with acute HF prompting cardiology consultation.
-Patient remains in A-fib with RVR. Patient had successful outpatient CV on 11/13/2024 followed by this recurrence. Patient is new to amiodarone 400 mg TID starting 12/02/2024, dose reduced to 200 mg BID starting 12/03/2024 PM, orders placed by me.
-QTc 564 ms on ECG 12/03/2024. QTc 507 ms on ECG 12/02/2024. Repeat ECG in a.m., ordered by me.
-Outpatient dose of Eliquis 5 mg BID has been continued
-Plan is for CV on 12/04/2024. Pending results patient can be considered for repeat PVI, patient had previous PVI 07/2022
-CARRILLO on 11/13/2024 showed no left atrial thrombus with a significantly large nonmobile thrombus hugging the wall of the descending aorta. A CT chest/abdomen/pelvis for further clarification was performed and reviewed with vascular surgery Dr. Garner.
Continued anticoagulation as well as follow-up with vascular surgery was advised.
-Weight is up 6 lbs, the patient was weighed on bed scale one day and standing scale the other day. Previous dry weight unknown
-Continue Lasix 40 mg IV daily. Patient was taking Lasix 40 mg PO daily prior to admission
-Outpatient dose of Toprol-XL 50 mg daily has been continued
-Consider restarting losartan which patient previously tolerated
Progress Note - Senior Software Qa Analyst
Subjective
Date of Service: December 03, 2024
He feels well
Objective
Labs:
12/03/24 01:57
12/03/24 01:57
Labs
Hgb 14.6 g/dL (13.0-18.0) 12/03/24 01:57
Hct 44.6 % (39.0-52.0) 12/03/24 01:57
Plt Count 138 10^3/uL (130-400) 12/03/24 01:57
PT 18.7 Sec (11.4-14.6) H 12/02/24 13:47
INR 1.54 12/02/24 13:47
APTT 35.9 Sec (23.4-35.0) H 12/02/24 13:47
Sodium 137 mmol/L (135-145) 12/03/24 01:57
Potassium 4.5 mmol/L (3.5-5.1) 12/03/24 01:57
BUN 39 mg/dl (9-20) H 12/03/24 01:57
Creatinine 1.3 mg/dL (0.7-1.3) 12/03/24 01:57
Glucose 112 mg/dl (70-99) H 12/03/24 01:57
Vital Signs and I&O:
Vital Signs
Temp Pulse Resp BP Pulse Ox
97.5 F 79 20 112/70 95
12/03/24 15:17 12/03/24 12:00 12/03/24 15:17 12/03/24 11:23 12/03/24 15:17
Vital Signs
Temp Pulse Resp BP Pulse Ox
97.5 F 79 20 112/70 95
12/03/24 15:17 12/03/24 12:00 12/03/24 15:17 12/03/24 11:23 12/03/24 15:17
Intake & Output
12/01/24 12/02/24 12/03/24 12/04/24
06:59 06:59 06:59 06:59
Intake Total 360 / 360
Output Total 500 / 500 900 / 900
Balance -140 / -140 -900 / -900
Physical Exam
Physical Exam
GEN: NAD
LUNGS: RA
CV: A-fib on telemetry
[2024-12-03] MEDS: PACERONE 200 MG PO (20:29)
[2024-12-03] MEDS: MELATONIN 5 MG PO (22:05)
--- NOTE | 2024-12-03 22:44 | PTCARENOTE ---
Received patient at change of shift. Afib on the monitor, HR in the 70s. Cardizem running as per order, see documentation. NPO at midnight, pt verbalizes understanding. No complaints from pt at this time, call kwong within reach.
[2024-12-04] VITALS (10 sets, daily range): BP systolic 104–170; BP diastolic 65–139; BMI 25.3
[2024-12-04 04:51] LABS: Hematocrit 45.8 % (39.0-52.0); Hemoglobin 14.9 g/dL (13.0-18.0); Mean Corp Hgb Conc. 32.5 g/dL (33.0-37.0); Mean Corpuscular Volume 96.6 fL (80.0-94.0); Nucleated Red Blood Cells % 0 % (-); Platelet Count 146 10^3/uL (130-400); Red Cell Dist. Width 15.6 % (11.5-14.5)
[2024-12-04 05:07] LABS: ALT (SGPT) 23 U/L (0-50); AST (SGOT) 29 U/L (17-59); Albumin 3.8 g/dl (3.5-5.0); Alkaline Phosphatase 123 U/L (38-126); Blood Urea Nitrogen 43 mg/dl (9-20); Calcium 9.6 mg/dl (8.4-10.2); Carbon Dioxide 24 mmol/L (22-30); Chloride 104 mmol/L (98-107); Estimated Creatinine Clearance 35 ml/min; Glucose 103 mg/dl (70-99); Potassium 4.6 mmol/L (3.5-5.1); Sodium 135 mmol/L (135-145); Total Protein 6.7 g/dl (6.3-8.2); eGFR 46.19
[2024-12-04] MEDS: SYMBICORT 80/4.5 MCG INHALER 2 PUFF INH ×2 (07:55→19:38)
[2024-12-04] MEDS: SPIRIVA RESPIMAT 2.5 MCG 2 PUFF INH (07:55)
--- NOTE | 2024-12-04 08:00 | W.PN.CARDCBS ---
Addendum entered and electronically signed by Woodrow Fernandez MD 12/04/24 12:32:
I saw and examined the patient.
The Manager Language's note was reviewed and I agree with the note.
Comment:
GEN: No distress, awake, Ox3
HEENT: supple, anicteric, mmm
LUNGS: CTA, no wheezes/rales
CV: Reg, S1/S2, /6 syst LSB, no gallop
ABD: soft, BS+, NT/ND
EXT: No edema
NEURO: Gross non-focal
SKIN: No rash
PLan:
Back in sinus rhythm status post cardioversion. QTc is prolonged at ~550msec. Will decrease Amio to 200mg daily. Cont Toprol 50mg daily. Will need repeat ECG in AM
Continue Eliquis.
Creatinine up to 1.5 status post diuresis. Hold Lasix and follow
Would hold off on DORINA/ARB/ARNI with elevated creatinine.
Will consider SGL 2 inhibitor
Original Note:
Today's Communication / Plan
-
CV today
Continue with amiodarone
Pending results of repeat BMP he could be discharged to home later today
Impression / Plan
-
PCP: Cory Chambers
Primary house manager: Dr. Osorio
Impression:
Admitted with rapid A-fib and acute HF 12/02/2024
A-fib with RVR
Paroxysmal A-fib
s/p PVI 07/2022
s/p CV successful 11/13/2024
Possible acute HFrEF, but no improvement with diuresis and then developed CARLIN
CM EF 15 to 20% by echo 12/02/2024
PAD status post left common iliac stent (patent on CTA chest/abdomen/pelvis 10/2024)
Hypertension
COPD
History of aortic stenosis status post bioprosthetic AVR
History of CAD status post CABG
Mural thrombus of thoracic aorta
Lumbar stenosis
carotid stenosis B/L
Echo 10/05/2021: EF 35 to 40%, mild MR, mild TR
CARRILLO 11/13/2024: Mild to moderately decreased LV function, LV wall motion diffusely hypokinetic, RV systolic function mildly decreased, no left atrial thrombus, #23 bovine pericardial tissue aortic valve, mild MR, grade 3 atheroma in the arch and
large thrombus (not mobile) hugging the wall of the descending aorta.
Echo 12/02/2024: EF 15 to 20%, mild to moderate MR, tissue AVR with peak/mean 13/7 mmHg and no aortic regurgitation, dilated and hypokinetic RV, moderate to severe TR with PAP 47 mmHg
Plan:
-Patient presented to the ER with increased LE edema and was found to be in rapid A-fib and was admitted with acute HF prompting cardiology consultation.
-Patient remains in A-fib with RVR and plan is for repeat CV 12/04/2024. Patient had successful outpatient CV on 11/13/2024 followed by this recurrence. Pending results of repeat CV patient can be considered for repeat PVI, patient had previous PVI
07/2022
-Patient initially loaded with amiodarone 400 mg TID starting 12/02/2024, but dose reduced to 200 mg BID starting 12/03/2024 PM due to prolonged QT.
-QTc 564 ms on ECG 12/03/2024. QTc 507 ms on ECG 12/02/2024. Repeat ECG in a.m., ordered by me.
-Outpatient dose of Eliquis 5 mg BID has been continued
-CARRILLO on 11/13/2024 showed no left atrial thrombus, but a significantly large nonmobile thrombus hugging the wall of the descending aorta. A CT chest/abdomen/pelvis for further clarification was performed and reviewed with vascular surgery Dr. Garner.
Continued anticoagulation as well as follow-up with vascular surgery was advised.
-Patient was treated for possible acute HFrEF and was given Lasix 40 mg IV daily 12/02/2024 and 12/03/2024. Patient now with CARLIN and Cre up to 1.5 on 12/04/2024. Patient is anxious for discharge to home and cites a lifelong difficulty with
inability to defecate outside of his home environment which leads to him not eating and drinking normally. NSS 250 mL bolus over 2 hours ordered by me for 12/04/2024 and recheck BMP 12/04/2024 afternoon, if Cre is better then recommend discharge to
home.
-Doubt patient had acute HFrEF given CARLIN with attempts at diuresis and lack of symptomatic improvement.
-Patient was taking Lasix 40 mg PO daily prior to admission and this will likely be restarted at time of discharge
-Outpatient dose of Toprol-XL 50 mg daily has been continued
-EF 15 to 20% by echo 12/02/2024
-Patient will not be started on DORINA/ARB/ARNI/aldosterone antagonist due to CARLIN
-Patient is not interested in adding SGLT2 inhibitor, there is a possibility his EF will improve with uatsdin of SR
-Potential discharge to home 12/04/2024 pending repeat labs in the afternoon. Patient is anxious to get home because he has trouble defecating outside of his home environment and is anxious to get back home to his usual BM routine.
Progress Note - Policy Issue Clerk
Subjective
Date of Service: December 04, 2024
He is disappointed to hear that he might not go home today, he says he has trouble moving his bowels outside of his house and being out of routine and he really wants to go home
Objective
Labs:
12/04/24 04:33
12/04/24 04:33
Labs
Hgb 14.9 g/dL (13.0-18.0) 12/04/24 04:33
Hct 45.8 % (39.0-52.0) 12/04/24 04:33
Plt Count 146 10^3/uL (130-400) 12/04/24 04:33
PT 18.7 Sec (11.4-14.6) H 12/02/24 13:47
INR 1.54 12/02/24 13:47
APTT 35.9 Sec (23.4-35.0) H 12/02/24 13:47
Sodium 135 mmol/L (135-145) 12/04/24 04:33
Potassium 4.6 mmol/L (3.5-5.1) 12/04/24 04:33
BUN 43 mg/dl (9-20) H 12/04/24 04:33
Creatinine 1.5 mg/dL (0.7-1.3) H 12/04/24 04:33
Glucose 103 mg/dl (70-99) H 12/04/24 04:33
Vital Signs and I&O:
Vital Signs
Temp Pulse Resp BP Pulse Ox
98.5 F 70 18 114/86 95
12/04/24 04:30 12/04/24 05:00 12/04/24 04:30 12/04/24 04:22 12/04/24 04:30
Vital Signs
Temp Pulse Resp BP Pulse Ox
98.5 F 70 18 114/86 95
12/04/24 04:30 12/04/24 05:00 12/04/24 04:30 12/04/24 04:22 12/04/24 04:30
Intake & Output
12/02/24 12/03/24 12/04/24 12/05/24
06:59 06:59 06:59 06:59
Intake Total 360 / 360
Output Total 500 / 500 1100 / 1100
Balance -140 / -140 -1100 / -1100
Physical Exam
Physical Exam
GEN: NAD
LUNGS: RA
CV: A-fib on telemetry
[2024-12-04] MEDS: ELIQUIS 5 MG PO ×2 (08:07→20:10)
[2024-12-04] MEDS: TOPROL XL 50 MG PO (08:07)
[2024-12-04] MEDS: PACERONE 200 MG PO (08:08)
--- NOTE | 2024-12-04 08:14 | W.PN.HOSP.TC ---
Today's Communication/Plan
-
N.p.o.
Cardioversion
Hold Lasix
Labs in the morning
Assessment / Plan
Assessment / Plan
Gen-AAOx3, NAD
HEENT-NC, AT, anicteric, clear oral mm
Neck-supple
CV-reg, no M, +S1/S2
Lungs-clear B/L
Abd-soft, NT, ND
Ext-bilateral lower extremity edema
Musculoskeletal-no cyanosis, clubbing
Skin-warm and dry
Neuro-grossly non-focal
Psych-calm, cooperative
CARLIN -likely due to overdiuresis. Hold further Lasix. Discussed with cardiology. Creatinine up to 1.5, BUN 43, Bicarb 24.
However, still looks relatively volume overloaded with lower extremity edema, likely due to large contribution of right heart failure.
Acute on chronic heart failure with reduced EF -suspect multifactorial etiology including rapid atrial fibrillation, excessive fluid intake. Hold further Lasix as above.
Echocardiogram shows worsening LVEF, 15 to 20%. Mild to moderate MR with dilated LA. Dilated and hypokinetic RV RV, dilated RA, moderate to severe TR.
BNP 12,500.
Chest x-ray with small bilateral pleural effusions.
Recommend alcohol abstinence, sodium and fluid restriction on discharge. Discussed in detail with patient and .
He admits to missing doses of Lasix when he is busy working.
Rapid atrial fibrillation -underwent cardioversion November 13. History of radiofrequency ablation.
Currently on IV Cardizem drip 5 mg/h for rate control. Continue metoprolol and Eliquis.
Amiodarone started by cardiology.
Plan for cardioversion today. NPO.
Subclinical hypothyroidism -TSH 10.1, free T4 1.5. Recommend repeating labs as outpatient, PCP follow-up.
Thoracic aortic mural thrombus -noted on CTA, 11/13/2024. Continue anticoagulation. Follow-up with vascular surgery.
COPD without exacerbation -stable.
Essential hypertension -stable.
PAD
Hyperlipidemia
Lumbar stenosis
Chronic insomnia -continue 5 mg melatonin. Patient slept last night.
DNR
Anticipated Discharge: Within 24 hours
Subjective/Interval History
-
Date of Service: December 04, 2024
Patient seen and examined, denies shortness of breath. No complaints.
Objective Data
-
Labs:
Laboratory Results
12/04/24
04:33
WBC 8.7
Hgb 14.9
Hct 45.8
Plt Count 146
Sodium 135
Potassium 4.6
Chloride 104
Carbon Dioxide 24
BUN 43 H
Creatinine 1.5 H
Glucose 103 H
Calcium 9.6
Total Bilirubin 2.4 H
AST 29
ALT 23
Alkaline Phosphatase 123
Vital Signs:
Vital Signs
Temp Pulse Resp BP Pulse Ox
98.5 F 81 16 127/88 94
12/04/24 04:30 12/04/24 08:08 12/04/24 08:01 12/04/24 08:08 12/04/24 08:01
I&O
12/03/24 12/04/24 12/05/24
06:59 06:59 06:59
Intake Total 360 / 360
Output Total 500 / 500 1100 / 1100 150 / 150
Balance -140 / -140 -1100 / -1100 -150 / -150
Review of Systems
-
History Source: Patient
All other systems: Reviewed and negative
[2024-12-04] MEDS: NSS 250 IV (09:25)
--- NOTE | 2024-12-04 12:32 | ITS.CL.CARDI ---
[facility] - Cardioversion
Cardioversion
Procedure Report:
Date of Procedure: 12/04/24
Procedure: Cardioversion
Indication: Symptomatic atrial fibrillation
Performing Physician: Woodrow Fernandez MD
Technique: The patient was brought to the holding area. Signed informed consent was obtained. A time out was called and performed. The patient was anesthetized by the anesthesia service. Anticoagulation status was reviewed and appropriate. R2 pads
were placed anteriorly and posteriorly. A 200J synchronized biphasic shock restored normal sinus rhythm without significant bradycardia. There were no complications.
Conclusion: Uncomplicated cardioversion from atrial fibrillation to sinus rhythm.
Recommendation: Routine post cardioversion care. Continue senior care anticoagulation.
--- NOTE | 2024-12-04 18:50 | PTCARENOTE ---
~8601-5064: Handoff report received from nightshift RN. Pt Aox4, Afib 60s-70s on tele, SBP 120s, RA satting 94%. Patient denies pain at this time. Cardizem gt infusing @5, but placed on hold to maintain HR goal of 80-100. Pt NPO for CV today. Ax1
with walker to bathroom. Teeth brushed. 250cc bolus of NSS hung per order. All needs met at this time, call kwong within reach.
~1200: CCL brought patient in bed for CV.
~7786-2163: Patient arrived back to unit post CV in NSR/SB 50s-60s. EKG obtained at bedside showed prolonged QTC, cardiology aware. AOx4, RA satting 96%, SBP 100s. at bedside. All needs met at this time, call kwong within reach.
~9157-2497: Patient resting in room. Pt c/o decreased appetite, food encouraged. VSS. Urinal and call kwong within reach, all needs met at this time. Handoff report given to nightshift RN.
[2024-12-04] MEDS: MELATONIN 3 MG PO (20:10)
[2024-12-04] MEDS: ANESTHETIC LOZENGE 1 LOZENGE PO (20:11)
[2024-12-04] MEDS: MELATONIN 5 MG PO (21:15)
[2024-12-05 03:18] VITALS: BP 134/84
--- NOTE | 2024-12-05 03:24 | PTCARENOTE ---
Received pt @ change of shift. AAOx3, VSS-- NSR w/ long QT on monitor. Pt c/o sore/dry throat. Lozenge ordered-- see MAR. Pt also requested something stronger for sleep b/c he 'has not slept in the last few nights.' Pt was given additional 3mg of
melatonin for bed-- see MAR. Discussed plan of care for evening. Pt verbalizes understanding. Call kwong within reach.
[2024-12-05 04:34] LABS: ALT (SGPT) 21 U/L (0-50); AST (SGOT) 27 U/L (17-59); Albumin 3.5 g/dl (3.5-5.0); Alkaline Phosphatase 110 U/L (38-126); Blood Urea Nitrogen 41 mg/dl (9-20); Calcium 9.3 mg/dl (8.4-10.2); Carbon Dioxide 24 mmol/L (22-30); Chloride 104 mmol/L (98-107); Estimated Creatinine Clearance 38 ml/min; Glucose 98 mg/dl (70-99); Potassium 4.4 mmol/L (3.5-5.1); Sodium 135 mmol/L (135-145); Total Protein 6.3 g/dl (6.3-8.2); eGFR 50.18
[2024-12-05] MEDS: SPIRIVA RESPIMAT 2.5 MCG 2 PUFF INH (07:31)
[2024-12-05] MEDS: SYMBICORT 80/4.5 MCG INHALER 2 PUFF INH (07:31)
[2024-12-05 07:32] VITALS: BP 138/81
--- NOTE | 2024-12-05 08:14 | W.PN.HOSP.TC ---
Today's Communication/Plan
-
Hold Lasix
Await cardiology input
Assessment / Plan
Assessment / Plan
Gen-AAOx3, NAD
HEENT-NC, AT, anicteric, clear oral mm
Neck-supple
CV-reg, no M, +S1/S2
Lungs-clear B/L
Abd-soft, NT, ND
Ext-bilateral lower extremity edema
Musculoskeletal-no cyanosis, clubbing
Skin-warm and dry
Neuro-grossly non-focal
Psych-calm, cooperative
CARLIN -likely due to overdiuresis. Lasix has been on hold. Creatinine now trending down, 1.4. Baseline creatinine 1.0.
However, still looks relatively volume overloaded with lower extremity edema, likely due to large contribution of right heart failure.
Acute on chronic heart failure with reduced EF -suspect multifactorial etiology including rapid atrial fibrillation, excessive fluid intake. Hold further Lasix as above.
Echocardiogram shows worsening LVEF, 15 to 20%. Mild to moderate MR with dilated LA. Dilated and hypokinetic RV RV, dilated RA, moderate to severe TR.
BNP 12,500.
Chest x-ray with small bilateral pleural effusions.
Recommend alcohol abstinence, sodium and fluid restriction on discharge. Discussed in detail with patient and .
He admits to missing doses of Lasix when he is busy working.
Rapid atrial fibrillation -underwent cardioversion November 13. History of radiofrequency ablation.
Off Cardizem IV. Continue metoprolol and Eliquis.
Amiodarone started by cardiology.
Underwent successful cardioversion 12/04. Currently in sinus rhythm.
Subclinical hypothyroidism -TSH 10.1, free T4 1.5. Possibly related to amiodarone effect. Recommend repeating labs as outpatient, PCP follow-up. Discussed in detail with patient.
Thoracic aortic mural thrombus -noted on CTA, 11/13/2024. Continue anticoagulation. Follow-up with vascular surgery.
COPD without exacerbation -stable.
Essential hypertension -stable.
PAD
Hyperlipidemia
Lumbar stenosis
Chronic insomnia -continue 5 mg melatonin. Patient slept last night.
DNR
Dispo -discharge when cleared by cardiology. Close outpatient follow-up.
Anticipated Discharge: Today
Subjective/Interval History
-
Date of Service: December 05, 2024
Patient seen and examined. No complaints.
Objective Data
-
Labs:
Laboratory Results
12/05/24
03:51
Sodium 135
Potassium 4.4
Chloride 104
Carbon Dioxide 24
BUN 41 H
Creatinine 1.4 H
Glucose 98
Calcium 9.3
Total Bilirubin 2.0 H
AST 27
ALT 21
Alkaline Phosphatase 110
Vital Signs:
Vital Signs
Temp Pulse Resp BP Pulse Ox
96.4 F L 61 20 134/84 98
12/05/24 07:36 12/05/24 07:33 12/05/24 07:36 12/05/24 03:18 12/05/24 07:36
I&O
12/04/24 12/05/24 12/06/24
06:59 06:59 06:59
Intake Total 490 / 490
Output Total 1100 / 1100 500 / 500
Balance -1100 / -1100 -10 / -10
Review of Systems
-
History Source: Patient
All other systems: Reviewed and negative
[2024-12-05 09:38] VITALS: BMI 25.4
[2024-12-05] MEDS: TOPROL XL 50 MG PO (09:46)
[2024-12-05] MEDS: ELIQUIS 5 MG PO (09:47)
[2024-12-05] MEDS: FLUSH (NSS) 1 FLUSH IV (09:47)
--- NOTE | 2024-12-05 10:04 | PTCARENOTE ---
Patient resting in bed this morning, is anxious to go home, has no complaints and remains in SR. QTc still prolonged, tt to cardiology re: amiodarone dose this AM, will hold until they assess.
--- NOTE | 2024-12-05 11:29 | W.PN.CARDCBS ---
Addendum entered and electronically signed by Marshall Walsh MD 12/05/24 12:59:
I saw and examined the patient.
The Tutoring Assistant's note was reviewed and I agree with the note.
Comment: Briefly, 83-year-old man past medical history of heart failure with reduced ejection fraction (EF 15-20%) and paroxysmal atrial fibrillation who presents in rapid atrial fibrillation and acute heart failure
With diuresis patient appears euvolemic on exam
Lasix currently on hold for CARLIN
Recommend repeat BMP 12/08. If Cr back to baseline would resume PO lasix 40mg daily.
Continue metoprolol at lower dose, 25mg daliy
Eventual DORINA/ARB/ARNI when Cr normalizes
Successful DCCV 12/04
Telemetry showing sinus bradycardia
Amio dose reduced for prolonged QT. Plan to discharge on 200mg daily.
Eliquis for risk reduction of cardioembolic stroke
Close outpatient follow-up has been arranged
Stable for discharge from my perspective
Original Note:
Today's Communication / Plan
-
Hold amiodarone today
Decrease amiodarone to 200 mg daily upon
Decrease Toprol to 25 mg daily upon discharge
Hold Lasix until seen in office 12/09/2024
BMP in 5 to 7 days
Continue Eliquis
Outpatient cardiology follow-up has been arranged. Patient stable for discharge
Impression / Plan
-
PCP: Cory Chambers
Primary cornice upholsterer: Dr. Osorio
Impression:
Admitted with rapid A-fib and acute HF 12/02/2024
A-fib with RVR
Paroxysmal A-fib
s/p PVI 07/2022
s/p CV successful 11/13/2024
s/p CV successful 12/04/2024
Initial of Amiodarone during 12/02/2024 admision
Possible acute HFrEF, but no improvement with diuresis and then developed CARLIN
CM EF 15 to 20% by echo 12/02/2024
PAD status post left common iliac stent (patent on CTA chest/abdomen/pelvis 10/2024)
Hypertension
COPD
History of aortic stenosis status post bioprosthetic AVR
History of CAD status post CABG
Mural thrombus of thoracic aorta
Lumbar stenosis
carotid stenosis B/L
Echo 10/05/2021: EF 35 to 40%, mild MR, mild TR
CARRILLO 11/13/2024: Mild to moderately decreased LV function, LV wall motion diffusely hypokinetic, RV systolic function mildly decreased, no left atrial thrombus, #23 bovine pericardial tissue aortic valve, mild MR, grade 3 atheroma in the arch and
large thrombus (not mobile) hugging the wall of the descending aorta.
Echo 12/02/2024: EF 15 to 20%, mild to moderate MR, tissue AVR with peak/mean 13/7 mmHg and no aortic regurgitation, dilated and hypokinetic RV, moderate to severe TR with PAP 47 mmHg
Plan:
Patient presented 12/02/2024 to the ER with increased LE edema and was found to be in rapid A-fib and was admitted with acute HF prompting cardiology consultation.
-Underwent successful CV 12/04/2024. Patient had successful outpatient CV on 11/13/2024. If patient should have recurrent atrial fibrillation can be considered for repeat PVI, patient had previous PVI 07/2022
-Patient initially loaded with amiodarone 400 mg TID starting 12/02/2024, but dose reduced to 200 mg BID starting 12/03/2024 PM due to prolonged QT. Patient continued to have prolonged QT following cardioversion on 12/04/2024 and dose has been
reduced to 200 mg daily.
- QTc 537 ms on EKG 12/05/2024. QTc 564 ms on ECG 12/03/2024. QTc 507 ms on ECG 12/02/2024.
- Heart rates are noted to be bradycardic/low. Now on amiodarone as well as Toprol. Reduce Toprol to 25 mg once a day.
-Outpatient dose of Eliquis 5 mg BID has been continued
CARRILLO on 11/13/2024 showed no left atrial thrombus, but a significantly large nonmobile thrombus hugging the wall of the descending aorta. A CT chest/abdomen/pelvis for further clarification was performed and reviewed with vascular surgery Dr. Garner.
Continued anticoagulation as well as follow-up with vascular surgery was advised.
-Patient was treated for possible acute HFrEF and was given Lasix 40 mg IV daily 12/02/2024 and 12/03/2024. Patient now with CARLIN and peak Cre up to 1.5 on 12/04/2024. Creatinine improving currently 1.4 on 12/04/2024. Diuresis remains on hold.
-Doubt patient had acute HFrEF given CARLIN with attempts at diuresis and lack of symptomatic improvement.
-Patient was taking Lasix 40 mg PO daily prior to admission, although there has been history of non-compliance. Hold Lasix until he is seen in office 12/09, likely resume then
- He will need repeat BMP in 5-7 days as oupatient. Lab slip placed on chart
-Reduce Toprol-XL from 50 mg to 25 mg daily given initiation of amiodarone and bradycardia.
Cardiomyopathy, possibly tachycardic induced on top of fpc existing known cardiomyopathy
-EF 15 to 20% by echo 12/02/2024
-Patient will not be started on DORINA/ARB/ARNI/aldosterone antagonist due to CARLIN. If creatinine improves as outpatient consider adding DORINA/ARB
-Continue beta-carolin
-Patient is not interested in adding SGLT2 inhibitor, there is a possibility his EF will improve with adventist of SR
-Consider repeating echocardiogram and if ejection fraction remains reduced at follow-up then would consider ischemic evaluation
Patient stable from cardiac standpoint for discharge. Outpatient cardiology follow-up has been arranged.
Plan discussed with patient, nursing and hospitalist. Discharge instructions updated and prescription sent. Lab slip for basic metabolic panel has been placed on chart
Progress Note - Backend Developer
Subjective
Date of Service: December 05, 2024
Patient seen and examined. Patient eager to go home. Reports he is feeling well.
Objective
Labs:
12/04/24 04:33
12/05/24 03:51
Labs
Hgb 14.9 g/dL (13.0-18.0) 12/04/24 04:33
Hct 45.8 % (39.0-52.0) 12/04/24 04:33
Plt Count 146 10^3/uL (130-400) 12/04/24 04:33
PT 18.7 Sec (11.4-14.6) H 12/02/24 13:47
INR 1.54 12/02/24 13:47
APTT 35.9 Sec (23.4-35.0) H 12/02/24 13:47
Sodium 135 mmol/L (135-145) 12/05/24 03:51
Potassium 4.4 mmol/L (3.5-5.1) 12/05/24 03:51
BUN 41 mg/dl (9-20) H 12/05/24 03:51
Creatinine 1.4 mg/dL (0.7-1.3) H 12/05/24 03:51
Glucose 98 mg/dl (70-99) 12/05/24 03:51
Vital Signs and I&O:
Vital Signs
Temp Pulse Resp BP Pulse Ox
96.4 F L 63 20 138/81 98
12/05/24 07:36 12/05/24 09:46 12/05/24 07:36 12/05/24 09:46 12/05/24 07:36
Vital Signs
Temp Pulse Resp BP Pulse Ox
96.4 F L 63 20 138/81 98
12/05/24 07:36 12/05/24 09:46 12/05/24 07:36 12/05/24 09:46 12/05/24 07:36
Intake & Output
12/03/24 12/04/24 12/05/24 12/06/24
06:59 06:59 06:59 06:59
Intake Total 360 / 360 490 / 490
Output Total 500 / 500 1100 / 1100 500 / 500
Balance -140 / -140 -1100 / -1100 -10 / -10
Physical Exam
Physical Exam
GEN: No distress, awake, Ox3, sitting in bed
HEENT: supple, anicteric, mmm
LUNGS: Mild crackles at left base otherwise CTA, no wheezes/rales
CV: Reg, S1/S2, 2/6 syst murmur, no rub or gallop
ABD: soft, BS+, NT/ND
EXT: No edema, clubbing or cyanosis
NEURO: Gross non-focal
SKIN: No rash, warm, dry, pink
[2024-12-05 11:40] VITALS: BP 129/86
--- NOTE | 2024-12-05 12:23 | W.DS.TRANS ---
DC Summary - [employer]
-
Discharge Instructions:
Sleep Apnea Risk Low
Discharge Diagnosis/Procedures Recurrent paroxysmal atrial fibrillation with
rapid ventricular response, amiodarone loading
Diet 2 Gram Sodium
Activity Other activity
Driving Restrictions No driving for 24 hours
Bathing Restrictions None
Blood Work Get basic metabolic panel bloodwork in 5-7 days
Specialty Instructions Weigh Daily
Instructions: *[facility] Heart Failure Instructions
Stand-Alone Forms:
Changes to Home Medications: Yes
Discharge Medications:
DC Medications w/original date entered in [facility]
furosemide 40 mg tablet 40 mg PO DAILY Fluid Retention/Swelling 05/26/24
Held on 12/05/24. Instructions: Hold until you see Dr. Osorio on 12/09 and you get repeat blood work
acetaminophen 325 mg tablet (Tylenol) 325 mg PO Q6HPRN PRN MILD pain 11/13/24
apixaban 5 mg tablet (Eliquis) 5 mg PO BID Heart Disease/Condition 11/13/24
fluticasone fur. 100 mcg-umeclid 62.5 mcg-vilant 25 mcg inhalat.powder (Trelegy Ellipta) 1 inh inhalation R DAILY SOB 11/13/24
amiodarone 200 mg tablet 200 mg PO DAILY Arrhythmia #30 tabs 12/04/24
metoprolol succinate 25 mg tablet,extended release 24 hr (Toprol XL) 25 mg PO DAILY Arrhythmia #90 tabs 12/05/24
Home Medication Changes
Amiodarone dose reduced to 200 mg once daily.
Metoprolol succinate dose reduced to 25 mg once daily.
Pending Results: No
--- NOTE | 2024-12-05 13:18 | PTCARENOTE ---
Reviewed discharge instructions with the patient including follow up appointments, lab work needed, and he states his understanding. He is aware that amiodarone is to be taken daily only, starting tomorrow and that his metoprolol has been decreased.
Given a scale for home use and aware of heart failure instructions and what to monitor himself for. Waiting for his son to drive him home.
[2024-12-07 15:59] LABS: Retinyl Palmitate <0.02 mg/L (0.00-0.10); Xitamin A Interpretation Normal
== END 2024-12-05 13:37 | disposition home or self-care (01) | DRG 291 ==
LOC: IVU 11:08
PROVIDERS: Internal Medicine Cardiovascular Disease; Physician Assistant; Student in an Organized Health Care Education/Training Program; ADMITTING PHYSICIAN Hospitalist; CONSULT PHYSICIAN Internal Medicine Cardiovascular Disease; EMERGENCY PHYSICIAN Emergency Medicine; FAMILY PHYSICIAN Physician Assistant
PROC: 5A2204Z Restoration of Cardiac Rhythm, Single (ICD-10-PCS; 2024-12-04)
DX: I11.0 Hypertensive heart disease with heart failure (principal); I50.23 Acute on chronic systolic (congestive) heart failure; N17.9 Acute kidney failure, unspecified; Z87.891 Personal history of nicotine dependence; I48.0 Paroxysmal atrial fibrillation; Z79.01 Long term (current) use of anticoagulants; Z79.899 Other long term (current) drug therapy; I73.9 Peripheral vascular disease, unspecified; E03.8 Other specified hypothyroidism; J44.89 Other specified chronic obstructive pulmonary disease; Z66 Do not resuscitate
CPT/HCPCS: 71046; 80053; 82248; 83735; 83880; 84100; 84439; 84443; 84590; 85025; 85610; 85730; 92960; 93005; 93306; 94640; 96365; 96366; 96375; 99285

== ENCOUNTER → 2025-01-02 11:08 | Outpatient (REF) | payer MEDICARE, SELFPAY | LOC: HWRCS 11:08 | PROVIDERS: ATTENDING PHYSICIAN Internal Medicine Cardiovascular Disease; FAMILY PHYSICIAN Internal Medicine | DX: I42.9 Cardiomyopathy, unspecified (principal) | CPT/HCPCS: 93308 ==